=== PATIENT | male | born 1945 | race Caucasian/White ===

== ENCOUNTER 2020-12-20 09:48 | Observation (INO) | payer MEDICARE, OTHER, SELFPAY ==
[2020-12-20] VITALS (21 sets, daily range): BP systolic 125–170; BP diastolic 73–95; PULSE 59–65; RESP 14–27; TEMP 36.8–36.9; O2SAT 96–100; BMI 38.3
--- NOTE | 2020-12-20 11:19 | ED_ITS ---
HPI - Extremity Problem General Chief complaint: Extremity Problem,Nontraumatic Stated complaint: Weakness Time Seen by Provider: 12/20/20 11:19 Source: patient and EMS Mode of arrival: EMS Limitations: no limitations History of Present Illness HPI Narrative: This is a 75-year-old male comes emergency department with complaint of weakness of his left upper arm and lower extremity. Patient states this morning when he got out of bed he noticed that it was shaking. He states any time he would try to grab his cane and walk more when he was in the shower and felt like it was going to give out. Patient states he would get to a seated position. He states it seemed to be intermittent. It seems to be resolved. He describes it as his arm being more shaky and not that it was actually shaking or having tonic clonic type activity. Patient has not had similar symptoms in the past. He denies any pain. He denies any headache, no vision changes, no difficulties with speech. No chest pain, no shortness of breath, no nausea or vomiting. No urinary symptoms no issues with bowel movements. He has chronic tingling in both feet and numbness but no new sensation changes. He has not had any bowel or bladder incontinence. He does have a cardiac history, he has a pacemaker and a history remotely of surgery for kidney stones. He is on hydrochlorothiazide, atorvastatin, losartan, Flomax, carvedilol and Mexitil. No allergies. No tobacco, rare alcohol, no illicit. Dr. 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 Related Data Home Medications Medication Instructions Recorded Confirmed atorvastatin 40 mg tablet 40 mg PO QPM 12/20/20 12/20/20 carvedilol 6.25 mg tablet See Rx Instructions .ROUTE .COMPLEX 12/20/20 12/20/20 hydrochlorothiazide 50 mg PO QAM 12/20/20 12/20/20 mexiletine 200 mg capsule See Rx Instructions .ROUTE .COMPLEX 12/20/20 12/20/20 tamsulosin 0.4 mg capsule 0.4 mg PO BID 12/20/20 12/20/20 Allergies Allergy/AdvReac Type Severity Reaction Status Date / Time No Known Drug Allergies Allergy Verified 12/20/20 10:26 Review of Systems Review of Systems ROS Unobtainable: All systems reviewed & are unremarkable except as noted in HPI and below Patient History Social History household members: none Smoking Status: Former smoker alcohol intake: current Smoking Status: Current some day smoker tobacco type: smokeless tobacco alcohol intake frequency: 0-2 drinks per day Substance Use Type: does not use Exam Narrative Exam Narrative: GEN: well nourished, well appearing male, alert and oriented x 3, patient appears to be in mild distress. HEENT: Atraumatic, pupils are equal round reactive to light, extraocular movements are intact, nares are clear, TMs are clear with no fluid, there is no conjunctival pallor. Throat is clear without any exudates, erythema, tonsillar enlargement or uvular deviation, no facial droop. Normal speech. HEART: Regular rate and rhythm without murmur, clicks, rubs. Pulses are equal in upper and lower extremities LUNGS:Lungs clear to auscultation, no wheezes, rales, crackles, chest moves symmetrically ABD:bowel sounds normal, soft, non-tender, no guarding, rebound, rigidity, no masses noted, no hepatosplenomegaly :No CVA tenderness MSCL: Non-tender, no muscle atrophy, muscles strength 5/5 upper and lower extremities, full range of motion, normal gait NEURO:CN 2-12 intact, sensation normal, reflexes 2/4 upper and lower extre mities. finger nose finger test normal, heel pathak test normal, romberg normal SKIN: No rash, skin or erythema noted. Initial Vital Signs Initial Vital Signs: Vital Signs Temperature 98.4 F 12/20/20 09:50 Pulse Rate 62 12/20/20 09:50 Respiratory Rate 18 12/20/20 09:50 Blood Pressure 131/80 12/20/20 09:50 Pulse Oximetry 100 12/20/20 09:50 Scores NIH Stroke Scale Level of Conciousness: Alert, keenly responsive Ask month/age: Answers both questions correctly. Open/close eyes, close hand: Performs both tasks correctly Best gaze horizontal: Normal Visual hill: No visual loss Facial palsy: Normal symetrical movement Left arm drift: No drift for full 10 sec Right arm drift: No drift for full 10 sec Left leg drift: No drift for full 5 sec Right leg drift: No drift for full 5 sec Limb ataxia: Absent Sensory on face/arms/legs: Normal, no sensory loss Best language: No aphasia, normal Dysarthria: Normal Extinction or inattention: No abnormality Total NIH Stroke scale score: 0 Course Orders Ordered: ED Orders 12/20/20 11:55 CT head/brain wo con Stat 12/20/20 11:56 CT angio head and neck Stat 12/20/20 12:17 Basic Metabolic Panel Stat Complete Blood Count AUTO DIFF Stat Partial Thromboplastin Time Stat Prolactin Stat Prothrombin Time INR Stat 12/20/20 14:52 COVID19 - 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 Lynn, accepts for observation for possible stroke. Discussed somewhat atypical presentation. Patient did wake up with symptoms so is not a tPA candidate. Patient was able to ambulate in the room but does appreciate some weakness on that left side still when he went to CT scan. Vital Signs Vital signs: Vital Signs - 8 hr 12/20/20 12:57 12/20/20 12:59 12/20/20 13:00 Pulse Rate 59 L 59 L 59 L Respiratory Rate 20 23 25 H Blood Pressure 168/80 H Pulse Oximetry 96 96 96 12/20/20 13:01 12/20/20 13:26 12/20/20 13:30 Pulse Rate 59 L 60 60 Respiratory Rate 23 26 H 25 H Blood Pressure 125/73 145/84 H 144/83 H Pulse Oximetry 96 98 99 12/20/20 14:00 12/20/20 14:01 12/20/20 14:30 Pulse Rate 60 60 60 Respiratory Rate 17 27 H 19 Blood Pressure 151/81 H Pulse Oximetry 97 98 97 12/20/20 14:31 Pulse Rate 60 Respiratory Rate Blood Pressure 132/81 Pulse Oximetry 98 MDM - Extremity (Nontraumatic) Lab Data Result diagrams: 12/20/20 12:17 12/20/20 12:17 Labs: Lab Results 12/20/20 12/20/20 12/20/20 Range/Units 12:17 12:17 12:17 WBC 5.0 (4.5-11.0) X10^3/uL RBC 4.66 (4.5-5.9) X10^6/uL Hgb 14.8 (13.5-17.5) g/dL Hct 43.9 (41-53) % MCV 94.2 (80-100) fL MCH 31.8 (26-34) PG MCHC 33.7 (30-36) % RDW 13.0 (11.6-14.8) % Plt Count 149 L (150-400) X10^3/uL Neut % (Auto) 60.5 (50-75) % Lymph % (Auto) 24.0 L (25-40) % [place] % (Auto) 11.3 (3-14) % Eos % (Auto) 3.1 (2-4) % Baso % (Auto) 1.1 (0-2) % Neut # (Auto) 3000 (0035-8533) /uL Lymph # (Auto) 1200 (8879-1675) /uL [place] # (Auto) 600 (0-900) /uL Eos # (Auto) 200 (0-450) /uL Baso # (Auto) 100 (0-100) /uL PT 13.1 H (10.1-12.7) SECONDS INR 1.2 (0.9-1.3) APTT 33 (26.4-36.2) SECONDS Sodium 139 (137-145) mmol/L Potassium 4.1 (3.4-5.1) mmol/L Chloride 107 (98-107) mmol/L Carbon Dioxide 27 (22-32) mmol/L BUN 15 (9-20) mg/dL Creatinine 0.70 (0.66-1.25) mg/dL Estimated GFR > 60.0 (>60) mL/min BUN/Creatinine Ratio 21.4 (6-22) Glucose 101 (80-110) mg/dL Calcium 9.7 (8.4-10.2) mg/dL Prolactin 9.9 (3.7-17.9) ng/mL Urine Dip Bedside Urine Glucose Negative Bedside Urine Bilirubin - Negative Bedside Urine Ketone - Negative Urine Specific Agency 1.020 Bedside Urine Occult Blood - Negative Bedside Urine pH 6.0 Bedside Urine Protein - Negative Bedside Urine Urobilinogen - Negative Bedside Urine Nitrite - Negative Bedside Urine Leukocytes - Negative Esterase ECG Data Attestation EKG: I personally reviewed and interpreted this ECG as follows: Interpretation: Dual paced rhythm, rate of 50 9p are 118 QRS of 186 and QTC 496. Discharge Plan Departure Patient Disposition: Admitted as Observation Clinical Impression: Acute CVA (cerebrovascular accident) Admit Date/Time: 12/20/20 14:46 Admit Provider: Tee Lynn
--- NOTE | 2020-12-20 11:55 | DI.CT.S_ITS ---
PROCEDURE: CT HEAD/BRAIN WO CON INDICATIONS: weakness, shaking of left leg/arm, gone now. TECHNIQUE: Noncontrast 4.5 mm thick angled axial sections acquired from the foramen magnum to the vertex, with coronal and sagittal reformats. For radiation dose reduction, the following was used: automated exposure control, adjustment of mA and/or kV according to patient size. COMPARISON: None. FINDINGS: Image quality: Excellent. CSF spaces: Basal cisterns are patent. No extra-axial fluid collections. The ventricles are symmetric in size and shape. Brain: No intracranial bleeds or masses. There is cerebral volume loss for age, with resultant ventricular and sulcal prominence. There are periventricular and deep white matter chronic small vessel ischemic changes. There is intracranial internal carotid artery atherosclerosis. Skull and face: Calvarium and visualized facial bones appear intact, without suspicious lesions. Bilateral intraocular lens replacements noted. Sinuses: Visualized sinuses and mastoids are clear. IMPRESSION: Atrophy and chronic ischemic change without acute hemorrhage or mass effect Approved by: Christopher Aguirre M.D. on 12/20/2020 at 12:41
--- NOTE | 2020-12-20 11:56 | DI.CT.S_ITS ---
PROCEDURE: CT ANGIO HEAD AND NECK INDICATIONS: weakness, shaking of left leg/arm, gone now. TECHNIQUE: Noncontrast images were performed earlier in the day and not repeated. After the administration of intravenous contrast, 1 mm thick sections acquired from the aortic arch through the [place]. Post-contrast 4.5 mm thick sections then re-acquired from the foramen magnum to the vertex. 3-dimensional qidojqh-yfjwnlyux-anaedrdytw (MIP) and/or volume rendering reformats were acquired of the central intracranial vasculature and neck separately. COMPARISON: [facility], CT, CT HEAD/BRAIN WO CON, 12/20/2020, 13:12. FINDINGS: Image quality: There are collateral veins seen throughout the neck, which limit evaluation of the neck. BRAIN: CSF spaces: Ventricles are normal in size and shape. Basal cisterns are patent. No extra-axial fluid collections. Brain: No midline shift. No intracranial bleeds or masses. Bernstein-white matter interface appears intact. Skull and face: Calvarium and facial bones appear intact, without suspicious lesions. Orbits appear normal. Sinuses: Sinuses and mastoids are clear. HEAD CT ANGIOGRAPHY: Anterior circulation: Intracranial internal carotid arteries are normal in size and flow. The flow within the paired anterior cerebral arteries is normal and symmetric. The flow within the middle cerebral arteries is normal and symmetric. The anterior communicating artery is seen. No aneurysms are seen. Posterior circulation: Visualized portions of the vertebral arteries demonstrate normal caliber. The distal right vertebral artery largely terminates in the right posterior inferior cerebellar artery. The basilar artery is within normal limits. Flow within the posterior cerebral arteries is normal and symmetric. No aneurysms are seen. NECK CT ANGIOGRAPHY: Carotid system: The great vessels demonstrate a conventional anatomy as they arise from the aortic arch. The origins of the common carotid arteries appear patent. The common carotid arteries demonstrate normal caliber and courses. The bifurcation regions are both widely patent. The internal carotid arteries demonstrate normal calibers and courses. Posterior circulation: The origins of the vertebral arteries both appear widely patent. The more superior extracranial portions of both vertebral arteries also demonstrate normal courses and calibers. The left vertebral artery is dominant to the right. Soft tissues: Visualized neck soft tissues demonstrate no suspicious abnormalities. A left-sided pacer device is seen. Bones: No suspicious bony lesions. Visualized cervical spine appears normally aligned. Relatively prominent cervical spine degenerative changes are seen. IMPRESSION: No significant intracranial arterial abnormality is seen. Limited evaluation of the neck arteries, yet without a hemodynamically significant stenosis seen. Incidental note is made of: Pacer device Relatively prominent cervical spine degenerative change Any quantitative measurements of stenosis were performed using NASCET criteria. Dictated by: Mike Portillo M.D. on 12/20/2020 at 12:44 Approved by: Mike Portillo M.D. on 12/20/2020 at 12:47
[2020-12-20 12:28] LABS: Add Manual Diff / Slide Review NO; Basophils Absolute Auto 100 /uL (0-100); Basophils Percent Auto 1.1 % (0-2); Eosinophils Absolute Auto 200 /uL (0-450); Eosinophils Percent Auto 3.1 % (2-4); Hematocrit 43.9 % (41-53); Hemoglobin 14.8 g/dL (13.5-17.5); Lymphocytes Absolute Auto 1200 /uL (1100-4500); Mean Corpuscular HGB Conc 33.7 % (30-36); Mean Corpuscular Hemoglobin 31.8 PG (26-34); Mean Corpuscular Volume 94.2 fL (80-100); Monocytes Absolute Auto 600 /uL (0-900); Monocytes Percent Auto 11.3 % (3-14); Neutrophils Absolute Auto 3000 /uL (1500-7000); Neutrophils Percent Auto 60.5 % (50-75); Platelet Count 149 X10^3/uL (150-400); Red Blood Cell Count 4.66 X10^6/uL (4.5-5.9)
[2020-12-20 12:35] LABS: INR 1.2 (0.9-1.3); Prothrombin Time 13.1 SECONDS (10.1-12.7)
[2020-12-20 12:38] LABS: PTT Partial Thromboplastin Tim 33 SECONDS (26.4-36.2)
[2020-12-20 12:40] LABS: BUN Creatinine Ratio 21.4 (6-22); Blood Urea Nitrogen 15 mg/dL (9-20); Calcium 9.7 mg/dL (8.4-10.2); Carbon Dioxide 27 mmol/L (22-32); Chloride 107 mmol/L (98-107); Estimated Glomerular Filt Rate > 60.0 mL/min (>60); Glucose 101 mg/dL (80-110); HEMOLYSIS < 15 (0-50); Potassium 4.1 mmol/L (3.4-5.1); Sodium 139 mmol/L (137-145)
[2020-12-20 12:57] LABS: Prolactin 9.9 ng/mL (3.7-17.9)
[2020-12-20] MEDS: SODIUM CHLORIDE 0.9% 1,000 ML 150 ML IV (13:05)
[2020-12-20 15:45] LABS: COVID19 - ADMIT (NP swab/PCR) Negative (Negative)
--- NOTE | 2020-12-20 15:52 | PC.NURSE ---
Pt ambulates to toilet, upon return to room Pt summons RNs to room. States that Pt had lost control of his right leg while lying in bed. Atates This is more than just spasms. Pt states there is some kind of electrical current to my leg that is making it go haywire. RNs reassure Pt and , ask them to alert staff if it happens again.
[2020-12-20] MEDS: ASPIRIN 81 MG CHEW TAB 324 MG PO (15:59)
--- NOTE | 2020-12-20 17:43 | DI.ECHO.S_ITS ---
[facility]---------+ [facility] +---------+ : : [address] [place] : : : : [id number] : : : : Phone: [phone] Echocardiogram Report + + :Name: SHIVA GROSSMAN Study Date: 12/21/2020 Height: 74 in : :[facility] ReadingLocation: Weight: 307 lb : : Gender: Male BSA: 2.6 m2 : :: 1945 Age: 75 yrs BP: 155/95 mmHg: :Reason For Study: AEROLOGIST : :Ordering Physician: MILENA, : :JULISSA Performed By: Courtney Dimas : :Referring: JULISSA ABBOTT : + + Interpretation Summary The left ventricle is borderline dilated. Left ventricular systolic function is normal. The ejection fraction is estimated to be 60-65%. There are no obvious focal wall motion abnormalities noted but poor endocardial definition reduces the sensitivity for the detection of such. The right ventricle is borderline dilated. There is a pacemaker lead in the right ventricle. The right ventricular systolic function is normal. Pulmonary artery pressures cannot be estimated because of the lack of a measurable TR jet velocity but the IVC suggests a CVP of around 3 mmHg. The left atrium is mildly dilated. The right atrium is mildly dilated. There is severe aortic stenosis. The peak aortic velocity is 4.28 m/sec. The aortic valve mean gradient is 44 mmHg. The calculated aortic valve area is 0.95 cm2. There is mild aortic regurgitation. There is no other significant valvular heart disease. The ascending aorta is moderately enlarged. Procedure: A two-dimensional transthoracic echocardiogram with color flow and Doppler was performed. Comparison is made with the echocardiogram of 04/17/2011. The study quality was technically difficult. A contrast injection of Definity was performed to improve assessment of LV function. The patient has a paced rhythm. The heart rate ranged between 60-68 bpm during the study. Left Ventricle: The left ventricle is borderline dilated. There is mild- moderate concentric left ventricular hypertrophy. Left ventricular systolic function is normal. The ejection fraction is estimated to be 60-65%. There are no obvious focal wall motion abnormalities noted but poor endocardial definition reduces the sensitivity for the detection of such. Right Ventricle: The right ventricle is borderline dilated. There is a pacemaker lead in the right ventricle. The right ventricular systolic function is normal. Atria: The left atrium is mildly dilated. The right atrium is mildly dilated. The interatrial septum is not well visualized. Mitral Valve: The mitral valve leaflets appear mildly thickened, but open well. There is mild mitral annular calcification. There is no mitral regurgitation noted. Aortic Valve: The aortic valve is trileaflet. The aortic valve is severely calcified. There is severe aortic stenosis. The peak aortic velocity is 4.28 m/sec. The aortic valve mean gradient is 44 mmHg. The calculated aortic valve area is 0.95 cm2. There is mild aortic regurgitation. Tricuspid Valve: The tricuspid valve is normal in structure and function. No tricuspid regurgitation. Pulmonary artery pressures cannot be estimated because of the lack of a measurable TR jet velocity but the IVC suggests a CVP of around 3 mmHg. Pulmonic Valve: The pulmonic valve is not well visualized. There is trace pulmonic regurgitation. There is no other significant valvular heart disease. Great Vessels: The aortic root is normal size. The ascending aorta is moderately enlarged. The IVC is of normal diameter and collapses greater than 50% with a sniff. This suggests a low right atrial pressure of 3 mm Hg. Pericardium/ Pleura There is no pericardial effusion. There is no pleural effusion. MMode/2D Measurements & Calculations LVIDd: 6.0 cm LVOT diam: 2.3 cm LVIDs: 4.2 cm Ao root diam: 3.9 cm FS: 29.9 % asc Aorta Diam: 4.1 cm IVSd: 1.3 cm LVPWd: 1.5 cm LV quintero. diameter/BSA (cm/m^2): 2.3 LV sys. diameter/BSA (cm/m^2): 1.6 LA A2 area: 27.4 cm2 RA long axis: 5.3 cm LA A4 area: 27.7 cm2 RA area: 24.1 cm2 LA length (vol): 6.7 cm RA vol: 92.9 ml LA vol: 95.4 ml RA : 35.6 ml/m2 LA vol index: 36.6 ml/m2 IVC diam: 1.5 cm RVD1 (basal): 4.9 cm TAPSE: 2.6 cm Doppler Measurements & Calculations Ao V2 max: 428.5 cm/sec LVOT Max Angelo: 100.0 cm/sec Ao V2 mean: 308.6 cm/sec LV V1 max P.0 mmHg Ao max P.5 mmHg LV V1 VTI: 22.3 cm Ao mean P.8 mmHg DUTCH(I,D): 1.1 cm2 Ao V2 VTI: 89.0 cm DUTCH(V,D): 0.99 cm2 sev ratio: 0.25 DUTCH indexed to BSA (cm^2/m^2): 0.41 MV E max angelo: 94.3 cm/sec PA pr(Accel): 39.6 mmHg MV A max angelo: 102.4 cm/sec MV E/A: 0.92 Med Peak E' Angelo: 5.1 cm/sec E/E' med: 18.3 Lat Peak E' Angelo: 3.1 cm/sec E/E' lat: 30.2 E/e' average: 24.3 MV dec time: 0.35 sec SV(LVOT): 94.3 ml Reading Physician:01:16 PM
--- NOTE | 2020-12-20 18:19 | PC.NURSE ---
Pt up to unit from ED at 1709 in a wheelchair. SBA transfer to the bed. VSS and NIH was 1 (more numbness in left leg than right but per patient this is normal for him). Swallow screen passed. Discussed with hospitalist Dr. Lynn and he ordered a heart healthy diet instead of clear liquids and no fluids are needed.
--- NOTE | 2020-12-20 19:01 | PC.NURSE ---
Lab called about urine drug screen order from ER. Per Dr. Lynn, this does not need to be completed. Cancelled order and lab aware.
--- NOTE | 2020-12-20 20:41 | PM.HP.1 ---
History of Present Illness History of Present Illness Date Patient Seen: 12/20/20 Time Patient Seen: 15:00 Chief complaint: Weakness Narrative: Mr. Avery is a 75M with PMH HTN, HL, BPH, s/p PPM who comes in complaining of left sided weakness and inability to control his extremities. Patient has never had any symptoms like this previously. He woke up this morning and as he attempted to ambulate he noted his left arm and leg were difficult to control. He does not feel this was secondary to pain. He could still move his arm and leg. He had no numbness, no incontinence. He noted a positional and intermittent component to his symptoms. He did not have tremors or seizure like activity. He had no trauma. He had no vision changes, headache, or changes in his speech. In the ED workup was done, vitals were unremarkable. NIH 0. Labs notable for WBC 5.0, creatinine 0.70. Patient was not a tpa candidate as he woke up with symptoms and they had completely resolved. CT head was negative for stroke. CT angio head/neck did not show any evidence of vascular disease. he did have noted c5-c6 bilateral neural formanimal narrowing and moderate central canal narrowing. Patient does state he has some neck discomfort chronically. He was ordered for aspirin. He was admitted for further treatment. Family history father had [place], CAD Patient History Comment: history of kidney stones Family & Social History Social History: household members none Prior Living Arrangements House Safety & Behavioral: Feels Safe in Current Yes Environment Been Physically Hurt or No Threatened By a Person Suicidal Ideation Description None Suicide Plan Description No Plan Tobacco & Substance use: Smoking Status Former smoker alcohol intake current alcohol intake frequency holiday/special occasion Substance Use Type does not use Meds Home Medications and Allergies Home Medications Medication Instructions Recorded Confirmed Type atorvastatin 40 mg tablet 40 mg PO QPM 12/20/20 12/20/20 History carvedilol 6.25 mg tablet See Rx Instructions .ROUTE .COMPLEX 12/20/20 12/20/20 History hydrochlorothiazide 50 mg PO QAM 12/20/20 12/20/20 History mexiletine 200 mg capsule See Rx Instructions .ROUTE .COMPLEX 12/20/20 12/20/20 History tamsulosin 0.4 mg capsule 0.4 mg PO BID 12/20/20 12/20/20 History Allergies Allergy/AdvReac Type Severity Reaction Status Date / Time No Known Drug Allergies Allergy Verified 12/20/20 10:26 Review of Systems Review of Systems Narrative: 14 systems reviewed and negative aside from what is noted in HPI Exam Vital Signs (past 8 hours): - 12/20/20 12:57 12/20/20 12:59 12/20/20 13:00 Temperature Pulse Rate 59 L 59 L 59 L Respiratory Rate 20 23 25 H Blood Pressure 168/80 H Pulse Oximetry 96 96 96 12/20/20 13:01 12/20/20 13:26 12/20/20 13:30 Temperature Pulse Rate 59 L 60 60 Respiratory Rate 23 26 H 25 H Blood Pressure 125/73 145/84 H 144/83 H Pulse Oximetry 96 98 99 12/20/20 14:00 12/20/20 14:01 12/20/20 14:30 Temperature Pulse Rate 60 60 60 Respiratory Rate 17 27 H 19 Blood Pressure 151/81 H Pulse Oximetry 97 98 97 12/20/20 14:31 12/20/20 15:00 12/20/20 15:23 Temperature Pulse Rate 60 60 64 Respiratory Rate 23 22 Blood Pressure 132/81 148/81 H 170/75 H Pulse Oximetry 98 99 99 12/20/20 15:30 12/20/20 16:00 12/20/20 16:01 Temperature Pulse Rate 60 60 60 Respiratory Rate 24 14 26 H Blood Pressure 148/83 H Pulse Oximetry 99 98 97 12/20/20 16:30 12/20/20 16:31 12/20/20 17:10 Temperature 98.3 F Pulse Rate 60 60 61 Respiratory Rate 17 22 18 Blood Pressure 126/78 155/95 H Pulse Oximetry 97 97 98 Oxygen Delivery Method Room Air Narrative Exam Narrative: GEN: no acute distress HEENT: PERRL, moist mucous membranes NECK: trachea midline, no JVD CV: regular rate and rhythm with no murmurs PULM: clear bilaterally, no wheezes, rhonchi, rales ABD: soft, nontender, nondistended, no organomegaly, normal bowel sounds SKIN: no rashes noted EXT: warm and well perfused with no edema NEURO: awake alert and oriented, 5/5 strength in upper and lower extremities, CN 2-12 intact, no pronator drift, rapid alternating movements, heel to pathak all normal PSYCH: pleasant, cooperative Objective Labs Result Diagrams: 12/20/20 12:17 12/20/20 12:17 Labs: Laboratory Results - last 24 hr 12/20/20 12/20/20 12/20/20 12:17 12:17 12:17 WBC 5.0 RBC 4.66 Hgb 14.8 Hct 43.9 MCV 94.2 MCH 31.8 MCHC 33.7 RDW 13.0 Plt Count 149 L Neut % (Auto) 60.5 Lymph % (Auto) 24.0 L [place] % (Auto) 11.3 Eos % (Auto) 3.1 Baso % (Auto) 1.1 Neut # (Auto) 3000 Lymph # (Auto) 1200 [place] # (Auto) 600 Eos # (Auto) 200 Baso # (Auto) 100 PT 13.1 H INR 1.2 APTT 33 Sodium 139 Potassium 4.1 Chloride 107 Carbon Dioxide 27 BUN 15 Creatinine 0.70 Estimated GFR > 60.0 BUN/Creatinine Ratio 21.4 Glucose 101 Calcium 9.7 Prolactin 9.9 SARS-CoV-2 (PCR) 12/20/20 14:52 WBC RBC Hgb Hct MCV MCH MCHC RDW Plt Count Neut % (Auto) Lymph % (Auto) [place] % (Auto) Eos % (Auto) Baso % (Auto) Neut # (Auto) Lymph # (Auto) [place] # (Auto) Eos # (Auto) Baso # (Auto) PT INR APTT Sodium Potassium Chloride Carbon Dioxide BUN Creatinine Estimated GFR BUN/Creatinine Ratio Glucose Calcium Prolactin SARS-CoV-2 (PCR) Negative Assessment & Plan Assessment & Plan narrative: Mr. Avery is a 75M with PMH HTN who comes in with intermittent inability to move his left side normally. 1. Intermittent left sided weakness, acute -etiology is not clear -CT head CTA head/neck do not show evidence of stroke -patient with AICD/ppm can not undergo MRI -ordered for aspirin and statin -ordered for PT/OT, speech therapy -NIH assessment q4 -ct neck reveals moderate central canal stenosis, not clear to me that this is source of weakness, but will consult ortho for their opinion on symptoms and imaging 2. HTN -continue coreg 3. HL -chronic, continue atorvastatin 4. BPH, chronic -continue tamsulosin 5. Thrombocytopenia -mild -no need for transfusion, trend daily CODE: Full Proxy: Joy Gambino I have utilized all available immediate resources to obtain, update, or review the patient's current medications. Quality VTE Deep Vein Thrombosis/Pulmonary Embolism Present on Admission: No MIPS - Admit I confirm the patient?s Advance Care Plan is present, Code status is documented, Surrogate decision maker is in patient?s record [If Yes, STOP here]: Yes
[2020-12-20] MEDS: TAMSULOSIN 0.4 MG CAPSULE PO (21:46)
[2020-12-20] MEDS: ATORVASTATIN 20 MG TABLET 80 MG PO (21:46)
[2020-12-20] MEDS: carvediloL 3.125 MG TABLET 6.25 MG PO (21:46)
[2020-12-21 00:05] VITALS: BP 112/66; PULSE 63; RESP 16; TEMP 37.1; O2SAT 95
[2020-12-21 06:00] LABS: Add Manual Diff / Slide Review NO; Basophils Absolute Auto 0 /uL (0-100); Basophils Percent Auto 0.5 % (0-2); Eosinophils Absolute Auto 200 /uL (0-450); Eosinophils Percent Auto 3.5 % (2-4); Hematocrit 41.4 % (41-53); Hemoglobin 13.9 g/dL (13.5-17.5); Lymphocytes Absolute Auto 1400 /uL (1100-4500); Lymphocytes Percent Auto 25.8 % (25-40); Mean Corpuscular HGB Conc 33.5 % (30-36); Mean Corpuscular Hemoglobin 31.3 PG (26-34); Mean Corpuscular Volume 93.4 fL (80-100); Monocytes Absolute Auto 700 /uL (0-900); Neutrophils Absolute Auto 3200 /uL (1500-7000); Neutrophils Percent Auto 58.2 % (50-75); Platelet Count 131 X10^3/uL (150-400); Red Blood Cell Count 4.44 X10^6/uL (4.5-5.9); White Blood Cell Count 5.4 X10^3/uL (4.5-11.0)
[2020-12-21 06:07] LABS: Hemoglobin A1C% w Est Avg Glu 5.3 % (4.0-6.0)
[2020-12-21 06:09] LABS: Cholesterol 130 mg/dL (140-199); HDL Cholesterol 30 mg/dL (40-60); LDL Cholesterol Calculated 53 mg/dL (<100); Triglycerides 236 mg/dL (35-150)
[2020-12-21 06:10] LABS: BUN Creatinine Ratio 21.8 (6-22); Blood Urea Nitrogen 17 mg/dL (9-20); Calcium 9.5 mg/dL (8.4-10.2); Carbon Dioxide 27 mmol/L (22-32); Chloride 106 mmol/L (98-107); Estimated Glomerular Filt Rate > 60.0 mL/min (>60); Glucose 96 mg/dL (80-110); HEMOLYSIS < 15 (0-50); Sodium 138 mmol/L (137-145)
[2020-12-21] MEDS: ENOXAPARIN 40 MG/0.4 ML SYRINGE SUBCUT (08:30)
[2020-12-21] MEDS: carvediloL 3.125 MG TABLET 6.25 MG PO (08:30)
[2020-12-21] MEDS: hydroCHLOROthiazide 25 MG TABLET 50 MG PO (08:30)
[2020-12-21] MEDS: ASPIRIN EC 81 MG TABLET PO (08:30)
[2020-12-21] MEDS: TAMSULOSIN 0.4 MG CAPSULE PO (08:31)
[2020-12-21 09:25] VITALS: BP 117/78; PULSE 57; RESP 16; TEMP 36.6; O2SAT 97
--- NOTE | 2020-12-21 10:59 | PT.IIE ---
Physical Therapy Inpatient Evaluation/Re-Eval M1 PT/OT-IP Prior Functional Status Start: 12/21/20 12:42 Freq: NEEDED Status: Active Protocol: Document 12/21/20 10:59 AB (Rec: 12/21/20 12:56 AB [id number]) Medical Review Prior Functional Status Medical History Reviewed Yes Communication able to make needs known Mobility and Gait pt stated that he is independent with all mobilities and ambulation without AD Social History Household Members none Living Arrangements House Number of Floors (Floors) Two Floors Number of Stairs To Enter/Railing? ramp to enter 14 steps R rail descending to TV room area Home Environment Standard Height Toilet,Walk in Shower,Built-In Shower Seat, Ramp Home Equipment Straight Cane,Hand Held Shower ,Grab Bars Near Toilet,Grab Bars In Shower Additional Social History Comment pt has an adjustable bed M2 PT-IP Current Condition Start: 12/21/20 12:42 Freq: NEEDED Status: Active Protocol: Document 12/21/20 10:59 AB (Rec: 12/21/20 12:56 AB [id number]) Physical Therapy Current Condition Current Condition Evaluation Date 12/21/20 Treatment Diagnosis r/o CVA; difficulty in walking Onset Date 12/20/20 M3 PT-IP Subjective Start: 12/21/20 12:42 Freq: NEEDED Status: Active Protocol: Document 12/21/20 10:59 AB (Rec: 12/21/20 12:56 AB [email or web address]) Subjective Physical Therapy Visit Type Type Initial Evaluation Visit Start Time 10:59 Visit Stop Time 11:30 Total Visit Minutes 31 Number of 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 Visits 0 Physical Therapy Visit Comments Patient Comments agreeable to do PT Therapy Pain Assessment Pain When Pain Assessed At Rest Location Head Scale Used c/o headache M4 PT-IP Mobility and Gait Start: 12/21/20 12:42 Freq: NEEDED Status: Active Protocol: Document 12/21/20 10:59 AB (Rec: 12/21/20 12:56 AB [id number]) PT-Bed Mobility Assessment Supine to Sit Supine to Sit Independent Sit to Supine Sit to Supine Independent PT-Transfer Assessment Sit to and From Stand Sit to and from Stand Independent,Use of Upper Extremities Equipment Transfer Assistive Device Gait Belt,Front Wheeled Walker Orthotic/Prosthetic Devices or Brace: No Comments Mobility Comments pt supine in bed and agreeable to to PT. completed bed mobility mod I. pt able to sit on EOB SBA. pt stated that he prefers to use FWW for safety for now and will be able to borrow one. pt ambulated using FWW mod I ~ 150 ft. completed up/down platform step using fWW mod I. pt ambulated back to his room. assessed ambulation without AD and completed SBA ~ 50 ft. presents with antalgic gait and pt stated that he has L hip issues. pt laid back in bed. Mod I with sit to supine. call light and table placed within reach. informed pt that no further PT needed at this time and pt agreed. informed nurse. Gait Assessment Gait Gait Assistance Required: Independent,Standby Assistance Distance (Feet) 150 Able to Maintain Weight Bearing Status Yes During Gait Assistive Devices Assistive Device None,Gait Belt,Front Wheeled Walker Orthotic/Prosthetic Devices or Brace: No Gait Deviations General Gait Pattern Antalgic,Decreased Stride Length,Decreased Feet Clearance Stair Climbing Assessment Evaluation Level of Assist On Stairs Independent Devices Stair Climbing Assistive Devices Front Wheel Walker Technique/Endurance Stair Climbing Direction Ascend and Descend Stair Climbing Technique Step to Step Number of Steps Climbed 1 Query Text: Stair Climbing Set # Repetitions (reps) 2 PT-Balance Assessment Sitting Balance and Reactions Static Sitting Balance Ability Normal Dynamic Sitting Balance Ability Normal Standing Balance and Reactions Static Standing Balance Ability Good Dynamic Standing Balance Ability Good Device Used without AD M5 PT-IP Objective Assessments Start: 12/21/20 12:42 Freq: NEEDED Status: Active Protocol: Document 12/21/20 10:59 AB (Rec: 12/21/20 12:56 AB [id number]) Orientation Orientation/Cognition Level of Alertness Alert Language Function Ability No Deficits Noted Safety Awareness Understands Safety Issues Memory Description No Deficits Noted Gross Range of Motion Lower Extremity ROM Assessment Within Functional Limits Strength Lower Extremity Strength Assessment Within Functional Limits Sensation Assessment Sensation Gross Sensation WNL Muscle Tone Muscle Tone WNL Yes Other Assessments Other Other Assessments pt presents with forward head and increase B shoulder protraction. increase upper/ mid traps tightness. educated pt on proper posture and alignment. M6 PT-IP Treatment Start: 12/21/20 12:42 Freq: NEEDED Status: Active Protocol: Document 12/21/20 10:59 AB (Rec: 08/04/21 12:56 AB [email or web address]) Physical Therapy Treatment Education Education Provided Safety M7 PT-IP Assessment and Plan Start: 12/21/20 12:42 Freq: NEEDED Status: Active Protocol: Document 12/21/20 10:59 AB (Rec: 12/21/20 12:56 [email or web address] PT Summary Assessment and Plan Potential Rehabilitation Potential Good Status of Condition at Evaluation Stable Summary Assessment Summary PT eval completed and no further PT intervention indicated at this time. pt is mod I with bed mobility, ambulation using FWW, SBA without AD for safety, mod I with up/down steps using FWW. Frequency of Treatment Frequency Of Treatment Discharge Recommendations To Nursing Amount of Assist Needed Independent Discharge Recommendations PT Discharge Recommendations Home Transportation Needs at Discharge Private Vehicle
--- NOTE | 2020-12-21 11:23 | ST.IPSCREEN ---
Order received, chart records reviewed. pt passed swallow screen last evening. Stopped in to screen pt's speech/swallow. Pt reports no difficulty with speech clarity and language skills. He stated his swallowing is normal. Discussed same with MD, who agreed. Will d/c order. No ST indicated.
--- NOTE | 2020-12-21 11:59 | OT.IPNOTE ---
Per Hospitalist states pt doing well and does not have any OT needs and okay to discharge OT eval orders.
--- NOTE | 2020-12-21 12:42 | P.HP_ITS ---
History of Present Illness History of Present Illness Date Patient Seen: 12/21/20 Time Patient Seen: 12:42 Chief complaint: Spasticity in the left upper and lower extremity Narrative: Is a 75-year-old gentleman who said that he developed spasticity in his left upper and lower extremity. He describes atypical motion both in the left arm and the left leg. He said he had a couple of episodes. He denies a loss of consciousness. He did not have difficulty speaking and did not have significantly altered mental status. He said that he felt that it was coming on and then he developed spasticity in both his arm and his leg. Patient History Family & Social History Social History: household members none Prior Living Arrangements House Safety & Behavioral: Feels Safe in Current Yes Environment Been Physically Hurt or No Threatened By a Person Suicidal Ideation Description None Suicide Plan Description No Plan Tobacco & Substance use: Smoking Status Former smoker alcohol intake current alcohol intake frequency holiday/special occasion Substance Use Type does not use Meds Home Medications and Allergies Home Medications Medication Instructions Recorded Confirmed Type atorvastatin 40 mg tablet 40 mg PO QPM 12/20/20 12/20/20 History carvedilol 6.25 mg tablet See Rx Instructions .ROUTE .COMPLEX 12/20/20 12/20/20 History hydrochlorothiazide 50 mg PO QAM 12/20/20 12/20/20 History mexiletine 200 mg capsule See Rx Instructions .ROUTE .COMPLEX 12/20/20 12/20/20 History tamsulosin 0.4 mg capsule 0.4 mg PO BID 12/20/20 12/20/20 History aspirin 162 mg PO DAILY 12/21/20 12/21/20 History Allergies Allergy/AdvReac Type Severity Reaction Status Date / Time No Known Drug Allergies Allergy Verified 12/20/20 10:26 Review of Systems Review of Systems Narrative: Does note some chronic low back pain. Has a history of multiple orth opedic problems. Has exposure to [place] in the remote past and some bilateral lower extremity numbness but new no new toxic exposures. Denies any recent viral issues. He has been vaccinated for COVID about 6-8 weeks ago. He did not have an abnormal reaction Exam Vital Signs (past 8 hours): - 12/21/20 09:25 Temperature 97.8 F Pulse Rate 57 L Respiratory Rate 16 Blood Pressure 117/78 Pulse Oximetry 97 Oxygen Delivery Method Room Air Oxygen Flow Rate 0 Narrative Exam Narrative: Alert and oriented, in his face is symmetrical, he has fair range of motion into his cervical spine without increased symptoms. 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 in bilateral upper extremities, reflexes are symmetrical to her slightly hyporeflexic the biceps triceps quads Achilles and suprapatellar reflex, there is no beats of clonus, normal strength in bilateral lower extremities there is some mild numbness Objective Labs Result Diagrams: 12/21/20 05:45 12/21/20 05:45 Labs: Laboratory Results - last 24 hr 12/20/20 12/20/20 12/21/20 12:17 14:52 05:45 WBC RBC Hgb Hct MCV MCH MCHC RDW Plt Count Neut % (Auto) Lymph % (Auto) [place] % (Auto) Eos % (Auto) Baso % (Auto) Neut # (Auto) Lymph # (Auto) [place] # (Auto) Eos # (Auto) Baso # (Auto) Sodium 139 Potassium 4.1 Chloride 107 Carbon Dioxide 27 BUN 15 Creatinine 0.70 Estimated GFR > 60.0 BUN/Creatinine Ratio 21.4 Glucose 101 Hemoglobin A1c Calcium 9.7 Triglycerides 236 H Cholesterol 130 L LDL Cholesterol, Calc 53 HDL Cholesterol 30 L Prolactin 9.9 SARS-CoV-2 (PCR) Negative 12/21/20 12/21/20 12/21/20 05:45 05:45 05:45 WBC 5.4 RBC 4.44 L Hgb 13.9 Hct 41.4 MCV 93.4 MCH 31.3 MCHC 33.5 RDW 13.0 Plt Count 131 L Neut % (Auto) 58.2 Lymph % (Auto) 25.8 [place] % (Auto) 12.0 Eos % (Auto) 3.5 Baso % (Auto) 0.5 Neut # (Auto) 3200 Lymph # (Auto) 1400 [place] # (Auto) 700 Eos # (Auto) 200 Baso # (Auto) 0 Sodium 138 Potassium 4.0 Chloride 106 Carbon Dioxide 27 BUN 17 Creatinine 0.78 Estimated GFR > 60.0 BUN/Creatinine Ratio 21.8 Glucose 96 Hemoglobin A1c 5.3 Calcium 9.5 Triglycerides Cholesterol LDL Cholesterol, Calc HDL Cholesterol Prolactin SARS-CoV-2 (PCR) CT scan of his neck which is a CT angiogram does not show severe cervical stenosis Assessment & Plan Assessment & Plan narrative: Atypical spasticity in the left upper extremity and left lower extremity. His symptoms do not sound consistent with cervical stenosis. I discussed with him and his friend that I think the most appropriate follow-up is to follow-up with neurology. He has a history of multiple orthopedic problems but does not really need orthopedic follow-up at this point. He is currently working on a weight loss program because of worsening left hip pain. Quality VTE Deep Vein Thrombosis/Pulmonary Embolism Present on Admission: No
[2020-12-21 13:00] VITALS: BP 137/87; PULSE 61; RESP 17; TEMP 36.5; O2SAT 97
--- NOTE | 2020-12-21 14:31 | CM.DANOTE ---
DCP/Assessment: Reviewed chart. Patient is a 75yr old male admitted to [facility] with weakness. PCP is Dr. Soni. Primary payor is 1)Medicare 2)[facility] betty Alvarez. Met with patient this afternoon explained CM/SW role. Patient resting in bed, alert and oriented at time of visit. Patient reports that he plans to d/c home today. At this time there are no identified d/c planning needs. P: Home today. Patient has supportive family. SEVEN Alejandro Discharge Planning/Care Management CM Discharge Assessment Start: 12/21/20 14:28 Freq: Status: Active Protocol: Document 12/21/20 14:29 KJS (Rec: 12/21/20 14:31 KJS [id number]) Discharge Planning Assessment Assigned Acid Blower SEVEN Alejandro Contact Information Gene (sister) # [phone] Advance Directives? No History Provided By Patient,Family Member,Medical Record Prior Living Arrangements House Household Members none Type of transporation used prior to Drives own vehicle admit Independent with ADL's Yes Is patient alert and oriented? Yes Caregiver for Another No DME Already Rented / Owned Cane Whiteboard Updated in Patient Room with Yes name and ext. # of Acid Blower Review Status In Process Next Review Type Continued Stay Review
[2020-12-21 15:45] VITALS: BP 123/85; PULSE 61; RESP 17; TEMP 37.2; O2SAT 96
--- NOTE | 2020-12-22 10:41 | P.DS_ITS ---
History of Present Illness History of Present Illness Chief complaint: Spasticity in the left upper and lower extremity Narrative: Mr. Avery is a 75M with PMH HTN, HL, BPH, s/p PPM who comes in complaining of left sided weakness and inability to control his extremities. Patient has never had any symptoms like this previously. He woke up this morning and as he attempted to ambulate he noted his left arm and leg were difficult to control. He does not feel this was secondary to pain. He could still move his arm and leg. He had no numbness, no incontinence. He noted a positional and intermittent component to his symptoms. He did not have tremors or seizure like activity. He had no trauma. He had no vision changes, headache, or changes in his speech. In the ED workup was done, vitals were unremarkable. NIH 0. Labs notable for WBC 5.0, creatinine 0.70. Patient was not a tpa candidate as he woke up with sy mptoms and they had completely resolved. CT head was negative for stroke. CT angio head/neck did not show any evidence of vascular disease. he did have noted c5-c6 bilateral neural formanimal narrowing and moderate central canal narrowing. Patient does state he has some neck discomfort chronically. He was ordered for aspirin. He was admitted for further treatment. Family history father had [place], CAD Discharge Providers Provider Date of admission: 12/20/20 14:46 Discharge Date: 12/21/20 Primary care physician: Reza Soni MD Consults: 12/20/20 17:41 Consult to Discharge Planning Routine Comment: Consult to Occupational Therapy Evaluate & Treat Comment: Physician Instructions: Evaluate and treat Consult to Physical Therapy Evaluate & Treat Comment: Physician Instructions: Evaluate and Treat Consult to Speech Therapy Evaluate & Treat Comment: Physician Instructions: Evaluate and treat Discharge provider: Tee Lynn MD Summary Hospital Course Discharge Diagnosis: 1. Intermittent left sided spasticity, weakness 2. Hypertension 3. Hyperlipidemia 4. BPH chronic 5. Thrombocytopenia 6. Severe aortic stenosis 7. s/p AICD Hospital Course: Mr. Avery is a 75M with PMH HTN who comes in with intermittent inability to move his left side normally. He described this as intermittent, positional, and described this as a lack of control of his left arm and leg with some associated weakness and some developed a spasticity in both extremities. He had no seizure like activity. He had no pain. He had no numbness. He was a rule out stroke, and his head CT and CTA head/neck did not show any acute process. Once he was admitted his symptoms resolved and he felt back to normal. He did have on his CT neck moderate central canal stenosis that was unlikely related to these symptoms. Orthopedics was consulted and confirmed he did not need o rthopedic follow. He had an AICD and could not get an MRI. He was already on aspirin and atorvastatin and encouraged to keep taking these. He was discharged with neurology referral. ECHO was done as part of stroke workup and showed severe aortic stenosis which he is already following with cardiology. Exam Vital Signs (past 8 hours): Oxygen Delivery Method Room Air Oxygen Flow Rate 0 Narrative Exam Narrative: GEN: no acute distress HEENT: PERRL, moist mucous membranes NECK: trachea midline, no JVD CV: regular rate and rhythm with 2/6 murmur PULM: clear bilaterally, no wheezes, rhonchi, rales ABD: soft, nontender, nondistended, no organomegaly, normal bowel sounds SKIN: no rashes noted EXT: warm and well perfused with no edema NEURO: awake alert and oriented, 5/5 strength in upper and lower extremities, CN 2-12 intact, no pronator drift, rapid alternating movements, heel to pathak all normal PSYCH: pleasant, cooperative Objective Labs Result Diagrams: 12/21/20 05:45 12/21/20 05:45 [facility] Social History household members: none Smoking Status: Former smoker alcohol intake: current Discharge Plan Discharge Plan Patient Disposition: Home Health Service Provider Discharge Comment: Mr. Avery came in with left sided lack of control of his left side. Initially thought possibly weakness, but he had good strength. His symptoms resolved in the hospital. He had no evidence of stroke, but could not get MRI as he had ICD. He did have some pinched nerves in his neck which may contribute. He will be referred to a neurologist for further evaluation. Discharge orders & Medications Prescriptions: Continued atorvastatin 40 mg tablet 40 mg PO QPM RF: 0 carvedilol 6.25 mg tablet See Rx Instructions .ROUTE .COMPLEX RF: 0 tamsulosin 0.4 mg capsule 0.4 mg PO BID RF: 0 mexiletine 200 mg capsule See Rx Instructions .ROUTE .COMPLEX RF: 0 hydrochlorothiazide 50 mg tablet 50 mg PO QAM RF: 0 aspirin 162 mg PO DAILY RF: 0 Medication counseling provided by Pharmacist: Yes Follow up/Referrals: Reza Soni MD [Primary Care Provider] - Kaya Stokes MD [Non-Staff] - (intermittent left arm weakness, spasm) Diet/Activity/Treatments Diet: Regular Discharge Data Primary Care Provider: Reza Soni Attending Provider: Tee Lynn VTE Deep Vein Thrombosis/Pulmonary Embolism Present on Admission: No
== END 2020-12-21 18:45 | disposition home health service (06) ==
LOC: ED 14:45 → AC 14:47
PROVIDERS: Admitting Provider Internal Medicine; Emergency Provider Emergency Medicine; PCP Family Medicine; Referring Provider Emergency Medicine; Visit Provider Internal Medicine
DX: R53.1 Weakness (principal); G89.29 Other chronic pain; R20.2 Paresthesia of skin; R25.2 Cramp and spasm; M54.5 Low back pain; R29.700 NIHSS score 0; Z95.0 Presence of cardiac pacemaker; I10 Essential (primary) hypertension; E78.5 Hyperlipidemia, unspecified; N40.0 Benign prostatic hyperplasia without lower urinary tract symptoms; Z20.822 Contact with and (suspected) exposure to COVID-19
CPT/HCPCS: 36415; 70450; 70496; 70498; 80048; 80061; 81003; 83036; 84146; 85025; 85610; 85730; 87635; 93005; 93306; 96360; 96361; 96372; 97161; 99284; C9803; G0378; J1650

== ENCOUNTER 2023-05-30 12:30 | Outpatient (RCR) | payer MEDICARE, OTHER, SELFPAY ==
[2020-12-20 17:10] VITALS: BMI 38.3
== END 2023-05-30 14:30 ==
LOC: CAR 12:30
PROVIDERS: PCP Family Medicine; Referring Provider Internal Medicine Cardiovascular Disease; Visit Provider Internal Medicine Cardiovascular Disease
DX: Z95.2 Presence of prosthetic heart valve (principal)
CPT/HCPCS: 93798

== ENCOUNTER 2023-11-14 09:50 | Inpatient (IN) | payer MEDICARE, OTHER, SELFPAY ==
[2020-12-20 17:10] VITALS: BMI 38.3
[2023-11-14] VITALS (45 sets, daily range): BP systolic 109–177; BP diastolic 70–93; PULSE 56–73; RESP 17–38; TEMP 36.6–37.5; O2SAT 92–99; BMI 41.0; BMI 38.9
--- NOTE | 2023-11-14 09:51 | DI.CT.S_ITS ---
PROCEDURE: CT HEAD/BRAIN WO CON INDICATIONS: Fall on thinners TECHNIQUE: Noncontrast 4.5 mm thick angled axial sections acquired from the foramen magnum to the vertex, with coronal and sagittal reformats. For radiation dose reduction, the following was used: automated exposure control, adjustment of mA and/or kV according to patient size. COMPARISON: [facility], CT, CT HEAD/BRAIN WO CON, 12/20/2020, 13:12. FINDINGS: Image quality: Diagnostic. CSF spaces: Basal cisterns are patent. No extra-axial fluid collections. The ventricles are symmetric in size and shape. Brain: No intracranial bleeds or masses. 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 There is cerebral volume loss for age, with resultant ventricular and sulcal prominence. There are periventricular and deep white matter chronic small vessel ischemic changes. There is intracranial internal carotid artery atherosclerosis. Skull and face: Calvarium and visualized facial bones appear intact, without suspicious lesions. Left periorbital facial soft tissue hematoma. Sinuses: Visualized sinuses and mastoids are clear. IMPRESSION: No acute intracranial pathology. Dictated by: Kylie Cotton MD, PhD on 11/14/2023 at 11:01 Approved by: Kylie Cotton MD, PhD on 11/14/2023 at 11:03
--- NOTE | 2023-11-14 09:51 | DI.CT.S_ITS ---
PROCEDURE: CT CERVICAL SPINE WO CON INDICATIONS: Fall on thinners TECHNIQUE: Noncontrast 3 mm thick sections acquired from the skull base to the T4 level. Sagittal and coronal reformats were then constructed. For radiation dose reduction, the following was used: automated exposure control, adjustment of mA and/or kV according to patient size. COMPARISON: None. FINDINGS: Image quality: Image quality degraded by patient motion artifact. Bones: No fractures or dislocations. Visualized superior ribs are intact. Spine degenerative disc disease and facet arthropathy. Soft tissues: Prevertebral soft tissues are normal in thickness. No paravertebral hematomas. No apical pneumothoraces. IMPRESSION: No fracture or acute osseous lesion within limitations related to motion artifact. If symptoms and/or clinical suspicion for pathology persists, evaluation with MRI should be considered for further assessment. Dictated by: Kylie Cotton MD, PhD on 11/14/2023 at 11:06 Approved by: Kylie Cotton MD, PhD on 11/14/2023 at 11:08
--- NOTE | 2023-11-14 09:57 | ED.GENADULT ---
HPI - General Adult General Chief complaint: Trauma Stated complaint: Fall, on thinners, found down Time Seen by Provider: 11/14/23 09:50 Source: patient and EMS Mode of arrival: EMS Limitations: no limitations History of Present Illness HPI narrative: Patient is a 78-year-old male who is here for evaluation of a fall. Patient stated that he fell last evening. Somewhat confused about the events that led up to the fall. He was on anticoagulation. He laid on the ground for several hours. Patient arrived today by EMS. He was bruising around his left eye. Complaining of lower back pain. He states that ?everything hurts? denies chest pain, shortness of breath. He arrived not on a backboard not in a cervical collar. Related Data Home Medications Medication Instructions Recorded Confirmed atorvastatin 40 mg tablet 40 mg PO QPM 12/20/20 11/14/23 carvedilol 6.25 mg tablet See Rx Instructions .Route .COMPLEX 12/20/20 11/14/23 hydrochlorothiazide 50 mg PO QAM 12/20/20 11/14/23 mexiletine 200 mg capsule See Rx Instructions .Route .COMPLEX 12/20/20 11/14/23 tamsulosin 0.4 mg capsule 0.4 mg PO BID 12/20/20 11/14/23 aspirin 162 mg PO DAILY 12/21/20 11/14/23 Allergies Allergy/AdvReac Type Severity Reaction Status Date / Time No Known Drug Allergies Allergy Verified 12/20/20 10:26 Review of Systems Review of Systems ROS Unobtainable: All systems reviewed & are unremarkable except as noted in HPI and below Patient History Social History household members: none Smoking Status: Former smoker alcohol intake: current Smoking Status: Former smoker tobacco type: smokeless tobacco alcohol intake frequency: holidays/special occasions only Substance Use Type: does not use Exam Initial Vital Signs Initial Vital Signs: Vital Signs Temperature 99.4 F 11/14/23 09:54 Pulse Rate 73 11/14/23 09:54 Respiratory Rate 25 H 11/14/23 09:54 Pulse Oximetry 96 11/14/23 09:54 Oxygen Delivery Method Room Air 11/14/23 09:54 Const General: cooperative and comfortable HENMT Head: normal to inspection and normocephalic Eyes Other: Bruising around the left eye Chest Chest: No crepitus and No tenderness Resp Effort & Inspection: normal respiratory effort Auscultation: clear to auscultation bilaterally Cardio Rate: regular rate Rhythm: regular rhythm GI Inspection: normal to inspection and non-distended Palpation: soft Skin Other: Bruising around the left eye, bruising on the left-sided chest wall Neuro General: patient alert, patient awake and moves all extremities Extrem Other: Pelvis is stable. Moves all 4 extremities. No gross deformities. Partial avulsion of the nail of the left great toe Course Orders Ordered: ED Orders 11/14/23 09:51 CT cervical spine wo con Stat CT head/brain wo con Stat 11/14/23 09:52 EKG-12 Lead Stat 11/14/23 09:55 Complete Blood Count AUTO DIFF Stat Comprehensive Metabolic Panel Stat Lipase Stat PTT Partial Thromboplastin James Stat Prothrombin Time INR Stat Troponin & CK Cardiac Panel Stat 11/14/23 09:56 CT chest abd pel w con Stat CT facial bones wo con Stat Acetaminophen (Acetaminophen 325 Mg Tablet) 650 mg PO Q6H PRN PRN Reason: Fever/Mild Pain (1-3) Hydrocodone Bitart/Acetaminophen (Hydrocodone/Acet 5/325 Tablet) 1 tab PO Q4H PRN PRN Reason: Pain, Moderate (4-6) Aspirin (Aspirin Ec 81 Mg Tablet) 162 mg PO DAILY [facility] Carvedilol (Carvedilol 12.5 Mg Tablet) 12.5 mg PO DAILY [facility] Carvedilol (Carvedilol 3.125 Mg Tablet) 6.25 mg PO BEDTIME [facility] Heparin Sodium (Porcine) (Heparin 5,000 Unit/Ml Vial) 5,000 unit SUBCUT BID [facility] Last Admin: 11/14/23 13:54 Dose: 5,000 unit Documented By: KDK Sodium Chloride (Normal Saline 0.45%) 1,000 mls @ 100 mls/hr IV CONT [facility] Last Admin: 11/14/23 13:54 Dose: 100 mls/hr Documented By: KDK Naloxone HCl (Naloxone 0.4 Mg/Ml Vial) 0.2 mg IV Q2MIN PRN PRN Reason: Opiate Reversal Mexiletine 200 Mg (Capsule) 400 mg PO DAILY [facility] Mexiletine 200 Mg (Capsule) 200 mg PO BEDTIME [facility] Ondansetron HCl (Ondansetron 4 Mg/2 Ml Inj) 4 mg IV Q8HR PRN PRN Reason: Nausea And Vomiting Tamsulosin HCl (Tamsulosin 0.4 Mg Capsule) 0.4 mg PO BID [facility] Discontinued Medications Atorvastatin Calcium (Atorvastatin 20 Mg Tablet) 40 mg PO QPM [facility] Sodium Chloride (Normal Saline 0.9%) 1,000 mls @ 150 mls/hr IV CONT [facility] Last Admin: 11/14/23 10:58 Dose: 150 mls/hr Documented By: RB Vital Signs Vital signs: Vital Signs - 8 hr 11/14/23 10:10 11/14/23 10:15 11/14/23 10:16 Pulse Rate 71 71 71 Respiratory Rate 28 H 20 26 H Blood Pressure Pulse Oximetry 97 92 Oxygen Delivery Method 11/14/23 10:16 11/14/23 10:20 11/14/23 10:20 Pulse Rate 71 Respiratory Rate 28 H Blood Pressure 109/84 123/79 Pulse Oximetry 98 Oxygen Delivery Method 11/14/23 10:25 11/14/23 10:25 11/14/23 10:44 Pulse Rate 71 56 L Respiratory Rate Blood Pressure 136/74 Pulse Oximetry 98 99 Oxygen Delivery Method 11/14/23 10:45 11/14/23 10:45 11/14/23 10:50 Pulse Rate 69 Respiratory Rate 19 22 Blood Pressure 135/74 Pulse Oximetry 97 97 Oxygen Delivery Method Room Air 11/14/23 10:50 11/14/23 10:55 11/14/23 10:55 Pulse Rate 71 Respiratory Rate 34 H Blood Pressure 130/81 143/83 H Pulse Oximetry 97 Oxygen Delivery Method Room Air 11/14/23 11:00 11/14/23 11:00 11/14/23 11:05 Pulse Rate 70 69 Respiratory Rate 22 24 Blood Pressure 154/92 H Pulse Oximetry 98 96 Oxygen Delivery Method 11/14/23 11:05 11/14/23 11:10 11/14/23 11:10 Pulse Rate 70 Respiratory Rate 22 Blood Pressure 153/93 H 142/92 H Pulse Oximetry 97 Oxygen Delivery Method 11/14/23 11:15 11/14/23 11:15 11/14/23 11:20 Pulse Rate 70 69 Respiratory Rate 22 22 Blood Pressure 164/80 H Pulse Oximetry 97 95 Oxygen Delivery Method 11/14/23 11:20 11/14/23 11:25 11/14/23 11:25 Pulse Rate 69 Respiratory Rate 22 Blood Pressure 175/82 H 153/74 H Pulse Oximetry 97 Oxygen Delivery Method 11/14/23 11:30 11/14/23 11:30 11/14/23 11:35 Pulse Rate 70 69 Respiratory Rate 38 H 24 Blood Pressure 153/90 H Pulse Oximetry 97 98 Oxygen Delivery Method 11/14/23 11:35 11/14/23 11:40 11/14/23 11:40 Pulse Rate 71 Respiratory Rate 29 H Blood Pressure 158/81 H 156/83 H Pulse Oximetry 97 Oxygen Delivery Method 11/14/23 11:45 11/14/23 11:45 11/14/23 11:50 Pulse Rate 70 Respiratory Rate 28 H Blood Pressure 151/89 H 154/90 H Pulse Oximetry 96 Oxygen Delivery Method 11/14/23 11:50 11/14/23 11:55 11/14/23 11:55 Pulse Rate 69 70 Respiratory Rate 24 24 Blood Pressure 153/82 H Pulse Oximetry 98 96 Oxygen Delivery Method 11/14/23 12:00 11/14/23 12:00 Pulse Rate 69 Respiratory Rate 27 H Blood Pressure 154/86 H Pulse Oximetry 97 Oxygen Delivery Method Medical Decision Making Lab Data Lab results reviewed: Yes I reviewed the patient's lab results. 11/14/23 09:55 11/14/23 09:55 Labs: Lab Results 11/14/23 Range/Units 09:55 WBC 11.2 H (4.5-11.0) X10^3/uL RBC 4.68 (4.5-5.9) X10^6/uL Hgb 14.4 (13.5-17.5) g/dL Hct 41.8 (41-53) % MCV 89.3 (80-100) fL MCH 30.8 (26-34) PG MCHC 34.5 (30-36) % RDW 12.8 (11.6-14.8) % Plt Count 159 (150-400) X10^3/uL Neut % (Auto) 73.6 (50-75) % Lymph % (Auto) 11.9 L (25-40) % Dixon % (Auto) 13.2 (3-14) % Eos % (Auto) 0.4 L (2-4) % Baso % (Auto) 0.9 (0-2) % Neut # (Auto) 8300 H (1594-4459) /uL Lymph # (Auto) 1300 (0468-8646) /uL Dixon # (Auto) 1500 H (0-900) /uL Eos # (Auto) 0 (0-450) /uL Baso # (Auto) 100 (0-100) /uL PT 17.9 H (9.4-12.5) SECONDS INR 1.6 H (0.9-1.3) APTT 35 (25.1-36.5) SECONDS Sodium 131 L (137-145) mmol/L Potassium 3.0 L (3.4-5.1) mmol/L Chloride 96 L (98-107) mmol/L Carbon Dioxide 27 (22-32) mmol/L BUN 30 H (9-20) mg/dL Creatinine 1.29 H (0.66-1.25) mg/dL Estimated GFR 57 L (>60) mL/min BUN/Creatinine Ratio 23.3 H (6-22) Glucose 110 (80-110) mg/dL Calcium 8.8 (8.4-10.2) mg/dL Total Bilirubin 2.3 H (0.2-1.3) mg/dL AST 69 H (17-59) IU/L ALT 25 (<50) IU/L Alkaline Phosphatase 61 (38-126) U/L Total Creatine Kinase 1590 H (55-170) U/L Troponin I 0.047 H (0.01-0.034) ng/mL Total Protein 6.6 (6.3-8.2) g/dL Albumin 4.0 (3.5-5.0) g/dL Globulin 2.6 (1.7-4.1) g/dL Albumin/Globulin Ratio 1.5 (1.0-2.8) Lipase 56 (23-300) U/L Imaging Data CT scan - head: Radiologist's Impression: PROCEDURE: CT HEAD/BRAIN WO CON INDICATIONS: Fall on thinners TECHNIQUE: Noncontrast 4.5 mm thick angled axial sections acquired from the foramen magnum to the vertex, with coronal and sagittal reformats. For radiation dose reduction, the following was used: automated exposure control, adjustment of mA and/or kV according to patient size. COMPARISON: [facility], CT, CT HEAD/BRAIN WO CON, 12/20/2020, 13:12. FINDINGS: Image quality: Diagnostic. CSF spaces: Basal cisterns are patent. No extra-axial fluid collections. The ventricles are symmetric in size and shape. Brain: No intracranial bleeds or masses. 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 There is cerebral volume loss for age, with resultant ventricular and sulcal prominence. There are periventricular and deep white matter chronic small vessel ischemic changes. There is intracranial internal carotid artery atherosclerosis. Skull and face: Calvarium and visualized facial bones appear intact, without suspicious lesions. Left periorbital facial soft tissue hematoma. Sinuses: Visualized sinuses and mastoids are clear. IMPRESSION: No acute intracranial pathology. CT - cervical spine: Radiologist's Impression: ROCEDURE: CT CERVICAL SPINE WO CON INDICATIONS: Fall on thinners TECHNIQUE: Noncontrast 3 mm thick sections acquired from the skull base to the T4 level. Sagittal and coronal reformats were then constructed. For radiation dose reduction, the following was used: automated exposure control, adjustment of mA and/or kV according to patient size. COMPARISON: None. FINDINGS: Image quality: Image quality degraded by patient motion artifact. Bones: No fractures or dislocations. Visualized superior ribs are intact. Spine degenerative disc disease and facet arthropathy. Soft tissues: Prevertebral soft tissues are normal in thickness. No paravertebral hematomas. No apical pneumothoraces. IMPRESSION: No fracture or acute osseous lesion within limitations related to motion artifact. If symptoms and/or clinical suspicion for pathology persists, evaluation with MRI should be considered for further assessment. CT face: Radiologist's Impression: PROCEDURE: CT FACIAL BONES WO CON INDICATIONS: Left orbital injury after fall TECHNIQUE: Noncontrast 2.5 mm thick axial images acquired from the mandible through the frontal sinuses, with coronal and sagittal reformatting. For radiation dose reduction, the following was used: automated exposure control, adjustment of mA and/or kV according to patient size. COMPARISON: None. FINDINGS: Image quality: Degraded by patient motion artifact Bones and teeth: Orbital sibley are intact. Sinus sibley show no fracture or deformity. Nasal bones and septum are intact. Visualized portions of the mandible demonstrate no fractures or subluxation. Zygomatic arches are intact. Pterygoid plates are intact. Visualized portions of the skull base and auditory canals are intact. Sinuses: Mild mucosal thickening in the maxillary sinuses and frontal sinuses. Mastoid air cells are aerated. Soft tissues: Left periorbital facial soft tissue hematoma. No enlarged lymph nodes. No soft tissue lacerations or debris. Vascular: Visualized vascular structures appear normal in the absence of contrast. Bony vascular foramina and canals are intact. IMPRESSION: Image quality degraded by patient motion artifact. Minimally displaced right nasal bone fracture of indeterminate age. No additional fractures within limitations of the study CT chest/abd/pelvis: Radiologist's Impression: PROCEDURE: CT CHEST ABD PEL W CON INDICATIONS: Left-sided chest wall and abdominal bruising low back pain TECHNIQUE: After the administration of intravenous contrast, 5 mm thick sections acquired from the lung apices to the symphysis. 2.5 mm thick coronal and sagittal reformats were acquired. Additional 7 mm thick coronal maximum intensity projection (MIP) reformats acquired through the lungs. Optional 10-minute delayed imaging may be performed from the kidneys to the bladder. For radiation dose reduction, the following was used: automated exposure control, adjustment of mA and/or kV according to patient size. COMPARISON: [facility], CT, CT ABD PELVIS W&WO CON IVP, 08/01/2016, 8:22. FINDINGS: Image quality: Diagnostic. CHEST: Lower Neck: No enlarged lymph nodes. Thyroid: No thyroid nodules which require sonographic evaluation. Axillae: No enlarged lymph nodes. Chest Wall: No subcutaneous gas. Left chest wall cardiac pacer. Lungs and Pleura: No pulmonary contusions or lacerations. No acute airspace opacities. No pneumothorax or hemothorax. Mediastinum: No mediastinal hematomas. 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 Trace pericardial effusion. Thoracic aorta and pulmonary arteries demonstrate normal size and enhancement. No mediastinal or hilar adenopathy. Esophagus is normal in caliber. No hiatal hernia. ABDOMEN: Liver: No lacerations. Gallbladder: Gallbladder is surgically absent. Biliary ducts: No biliary dilation. Pancreas: Homogenous enhancement. Spleen: Homogenous enhancement without laceration or hematoma. Adrenal Glands: Symmetric enhancement. Kidneys and Ureters: Symmetric enhancement. 4 millimeter nonobstructing stone in the dependent portion of the left renal pelvis. Moderate distal right ureteral dilatation with ectopic insertion on the urinary bladder stable compared to August 01, 2016. No solid mass. No complex renal cystic lesion which requires follow up. Stomach and Bowel: Normal colonic caliber, without significant wall thickening. Peritoneum: No abnormal intraperitoneal fluid. No free air. Ventral Wall: No hernia. Abdominal Nodes: No retroperitoneal or mesenteric adenopathy by size criteria. Vessels: Aorta and inferior vena cava are normal in size. PELVIS: Pelvic Organs: Unremarkable. Bladder: Normal thickness. Pelvic Nodes: No enlarged lymph nodes. Miscellaneous: No inguinal hernias are seen. Bones: Pelvic ring and hip joints appear intact. No displaced rib fractures. Spine degenerative disc disease and facet arthropathy. Right hip arthroplasty. IMPRESSION: No evidence of acute traumatic injury to the chest, abdomen or pelvis. ECG Data Attestation: I personally reviewed and interpreted this ECG as follows: Interpretation: Ventricularly paced Rate is 70 MDM Narrative Medical decision making narrative: Patient does have an elevation of the CK and a bump in his creatinine. He was given fluids. This is most likely because he was lying on the ground for most of the night. His brother was at bedside. He has had 2 proximally 2 falls over the past 24 hours. He was having lower back pain but this is not new for him. Although it is worse since the falls. He was difficulty moving his right leg. CT scan showed no acute pathology. Given his falls and the elevation in CK will admit to the hospital. Discussed case with Dr. Jones who is the hospitalist who will admit for further evaluation and treatment. Discussed the need for admission with the patient. He expressed understanding agreement as well. Discharge Plan Departure Patient Disposition: Admitted as Observation Clinical Impression: Rhabdomyolysis, Contusion of eye, left, Lower back pain, Acute kidney injury Admit Date/Time: 11/14/23 12:01 Admit Provider: Herve Jones
--- NOTE | 2023-11-14 10:02 | EKG_ITS ---
[facility] [id number] [place] [address] Test Date: 2023-11-14 Pat Name: Ben Avery Department: Room: Gender: Male Cigar Bander: : 1945 Requested By: Order Number: [id number] Reading MD: Herve Jones Measurements Intervals [place] Rate: 70 P: SC: QRS: 220 QRSD: 198 T: 109 QT: 512 QTc: 552 Interpretive Statements Ventricular-paced rhythm Biventricular pacemaker detected Electronically Signed On 11-14-2023 15:11:40 PDT by Herve Jones
[2023-11-14 10:11] LABS: Add Manual Diff / Slide Review NO; Basophils Absolute Auto 100 /uL (0-100); Basophils Percent Auto 0.9 % (0-2); Eosinophils Absolute Auto 0 /uL (0-450); Eosinophils Percent Auto 0.4 % (2-4); Hematocrit 41.8 % (41-53); Hemoglobin 14.4 g/dL (13.5-17.5); Lymphocytes Absolute Auto 1300 /uL (1100-4500); Lymphocytes Percent Auto 11.9 % (25-40); Mean Corpuscular HGB Conc 34.5 % (30-36); Mean Corpuscular Hemoglobin 30.8 PG (26-34); Mean Corpuscular Volume 89.3 fL (80-100); Monocytes Absolute Auto 1500 /uL (0-900); Monocytes Percent Auto 13.2 % (3-14); Neutrophils Absolute Auto 8300 /uL (1500-7000); Neutrophils Percent Auto 73.6 % (50-75); Platelet Count 159 X10^3/uL (150-400); Red Blood Cell Count 4.68 X10^6/uL (4.5-5.9); Red Cell Distribution Width 12.8 % (11.6-14.8); White Blood Cell Count 11.2 X10^3/uL (4.5-11.0)
[2023-11-14 10:18] LABS: INR 1.6 (0.9-1.3); Prothrombin Time 17.9 SECONDS (9.4-12.5)
[2023-11-14 10:20] LABS: PTT Partial Thromboplastin Tim 35 SECONDS (25.1-36.5)
--- NOTE | 2023-11-14 10:21 | PC.NURSE ---
Patient arrives and provider immediately at patient bedside. Patient arrives via BLS and no c-collar in place. This RN also at bedside taking ems report. Patient states that he fell last night by tripping on his cane and struck his head on [place] drawers on the way down. Patient has a laceration above left eye. Patient has ravi orbital bruising around left eye with dried blood throughout his face. Patient states that he was on the ground since the fall until EMS arrival. Patient states that his ex called and when he didn't answer she came and found him on the floor. Patient states that he takes eliquis 5mg bid but has yet to take daily medications. Patient has significant bruising throughout chest, abdominal, and left back wall. Patient rates pain 10/10 throughout his body. This RN asked provider if he would like patient in c-collar. Provider responded in the negative. This RN accompanied denies having any shortness of breath. Patient is alert and orientated x 4. Another RN attempted to place IV twice once in left ac and left forearm without success. optics test technician confirmed with provider to delay imagining until line could be placed. Charge nurse successfully placed line via ultrasound in right ac at 10:21. optics test technician informed at 10:22. CT arrival to take patient at 10:29. This RN accompanies patient to CT.
[2023-11-14 10:23] LABS: Alanine Aminotransferase 25 IU/L (<50); Albumin Globulin Ratio 1.5 (1.0-2.8); Alkaline Phosphatase 61 U/L (38-126); Aspartate Aminotransferase 69 IU/L (17-59); BUN Creatinine Ratio 23.3 (6-22); Bilirubin Total 2.3 mg/dL (0.2-1.3); Blood Urea Nitrogen 30 mg/dL (9-20); Calcium 8.8 mg/dL (8.4-10.2); Carbon Dioxide 27 mmol/L (22-32); Chloride 96 mmol/L (98-107); Creatine Kinase 1590 U/L (55-170); Estimated Glomerular Filt Rate 57 mL/min (>60); Globulin 2.6 g/dL (1.7-4.1); Glucose 110 mg/dL (80-110); HEMOLYSIS 18 (0-50); Lipase 56 U/L (23-300); Sodium 131 mmol/L (137-145); Total Protein 6.6 g/dL (6.3-8.2)
[2023-11-14 10:34] LABS: Troponin I 0.047 ng/mL (0.01-0.034)
--- NOTE | 2023-11-14 10:52 | PC.NURSE ---
Patient arrived with wallet with ID, cards and 264 dollars in white. Patient brother Hood Avery arrived and patient asked for brother to take his wallet with him. Patient also has his cell phone but is choosing to keep that with him. This RN placed patient composition roll maker and cutter back of patient phone with patient authorization.
[2023-11-14] MEDS: SODIUM CHLORIDE 0.9% 1,000 ML 150 ML IV (10:58)
--- NOTE | 2023-11-14 13:00 | PT-IP ANOTE ---
Pt admitted after fall and down. Left orbital injury, high creatinine kinase and great toe is stubbed/broken nail and dried blood. He is currently on ED gurney in the ED with IV hooked up. Will wait until he arrives to floor for evaluation for better ability to assess mobility. Con't PT efforts at at later time. It appears pt will stay overnight.
[2023-11-14] MEDS: SODIUM CHLORIDE 0.45% 1,000 ML 100 ML IV ×2 (13:54→23:09)
[2023-11-14] MEDS: HEPARIN 5,000 UNIT/ML VIAL 5000 UNIT SUBCUT ×2 (13:54→21:35)
--- NOTE | 2023-11-14 14:50 | PM.HP.1 ---
History of Present Illness History of Present Illness Date Patient Seen: 11/14/23 Time Patient Seen: 14:50 Chief complaint: Fall, on thinners, found down Narrative: The patient is a 78-year-old male with history of aortic stenosis and TAVR within the last year in [place]. The patient presented to the ED by EMS for a fall. He tells me that he was looking for something last night, using his cane, and lost balance and fell. He was stuck on the floor overnight, for about 10 hours. He arrived to the ED with some bruising on his torso and a left periorbital hematoma. A CT of the head, C-spine, chest and abdomen was unremarkable. He denies any focal pain over his arms or legs. He did have a mildly elevated CPK and creatinine. He was started on IV fluids in the emergency department. He did not have evidence of confusion or acute injury other than those mentioned. He denies chest pain, palpitations, syncope, or seizures. [facility] Social History household members: none Smoking Status: Former smoker alcohol intake: current Meds Home Medications and Allergies Home Medications Medication Instructions Recorded Confirmed Type atorvastatin 40 mg tablet 40 mg PO QPM 12/20/20 11/14/23 History carvedilol 6.25 mg tablet See Rx Instructions .Route .COMPLEX 12/20/20 11/14/23 History hydrochlorothiazide 50 mg PO QAM 12/20/20 11/14/23 History mexiletine 200 mg capsule See Rx Instructions .Route .COMPLEX 12/20/20 11/14/23 History tamsulosin 0.4 mg capsule 0.4 mg PO BID 12/20/20 11/14/23 History aspirin 162 mg PO DAILY 12/21/20 11/14/23 History Allergies Allergy/AdvReac Type Severity Reaction Status Date / Time No Known Drug Allergies Allergy Verified 12/20/20 10:26 Review of Systems Review of Systems Narrative: All else reviewed and otherwise unremarkable except as noted in the history and physical. Exam Vital Signs (past 8 hours): - 11/14/23 09:54 11/14/23 09:56 11/14/23 09:59 Temperature 99.4 F Pulse Rate 73 71 69 Respiratory Rate 25 H 17 23 Blood Pressure Pulse Oximetry 96 94 97 Oxygen Delivery Method Room Air Oxygen Flow Rate 06/27/24 09:59 11/14/23 10:00 11/14/23 10:00 Temperature Pulse Rate 69 Respiratory Rate 18 Blood Pressure 134/80 130/83 Pulse Oximetry 98 Oxygen Delivery Method Oxygen Flow Rate 11/14/23 10:05 11/14/23 10:10 11/14/23 10:15 Temperature Pulse Rate 70 71 71 Respiratory Rate 25 H 28 H 20 Blood Pressure Pulse Oximetry 98 97 Oxygen Delivery Method Room Air Oxygen Flow Rate 11/14/23 10:16 11/14/23 10:16 11/14/23 10:20 Temperature Pulse Rate 71 71 Respiratory Rate 26 H 28 H Blood Pressure 109/84 Pulse Oximetry 92 98 Oxygen Delivery Method Oxygen Flow Rate 11/14/23 10:20 11/14/23 10:25 11/14/23 10:25 Temperature Pulse Rate 71 Respiratory Rate Blood Pressure 123/79 136/74 Pulse Oximetry 98 Oxygen Delivery Method Oxygen Flow Rate 11/14/23 10:44 11/14/23 10:45 11/14/23 10:45 Temperature Pulse Rate 56 L Respiratory Rate 19 Blood Pressure 135/74 Pulse Oximetry 99 97 Oxygen Delivery Method Oxygen Flow Rate 11/14/23 10:50 11/14/23 10:50 11/14/23 10:55 Temperature Pulse Rate 69 71 Respiratory Rate 22 34 H Blood Pressure 130/81 Pulse Oximetry 97 97 Oxygen Delivery Method Room Air Room Air Oxygen Flow Rate 11/14/23 10:55 11/14/23 11:00 11/14/23 11:00 Temperature Pulse Rate 70 Respiratory Rate 22 Blood Pressure 143/83 H 154/92 H Pulse Oximetry 98 Oxygen Delivery Method Oxygen Flow Rate 11/14/23 11:05 11/14/23 11:05 11/14/23 11:10 Temperature Pulse Rate 69 70 Respiratory Rate 24 22 Blood Pressure 153/93 H Pulse Oximetry 96 97 Oxygen Delivery Method Oxygen Flow Rate 11/14/23 11:10 11/14/23 11:15 11/14/23 11:15 Temperature Pulse Rate 70 Respiratory Rate 22 Blood Pressure 142/92 H 164/80 H Pulse Oximetry 97 Oxygen Delivery Method Oxygen Flow Rate 11/14/23 11:20 11/14/23 11:20 11/14/23 11:25 Temperature Pulse Rate 69 69 Respiratory Rate 22 22 Blood Pressure 175/82 H Pulse Oximetry 95 97 Oxygen Delivery Method Oxygen Flow Rate 11/14/23 11:25 11/14/23 11:30 11/14/23 11:30 Temperature Pulse Rate 70 Respiratory Rate 38 H Blood Pressure 153/74 H 153/90 H Pulse Oximetry 97 Oxygen Delivery Method Oxygen Flow Rate 11/14/23 11:35 11/14/23 11:35 11/14/23 11:40 Temperature Pulse Rate 69 71 Respiratory Rate 24 29 H Blood Pressure 158/81 H Pulse Oximetry 98 97 Oxygen Delivery Method Oxygen Flow Rate 11/14/23 11:40 11/14/23 11:45 11/14/23 11:45 Temperature Pulse Rate 70 Respiratory Rate 28 H Blood Pressure 156/83 H 151/89 H Pulse Oximetry 96 Oxygen Delivery Method Oxygen Flow Rate 11/14/23 11:50 11/14/23 11:50 11/14/23 11:55 Temperature Pulse Rate 69 70 Respiratory Rate 24 24 Blood Pressure 154/90 H Pulse Oximetry 98 96 Oxygen Delivery Method Oxygen Flow Rate 11/14/23 11:55 11/14/23 12:00 11/14/23 12:00 Temperature Pulse Rate 69 Respiratory Rate 27 H Blood Pressure 153/82 H 154/86 H Pulse Oximetry 97 Oxygen Delivery Method Oxygen Flow Rate 11/14/23 12:05 11/14/23 12:05 11/14/23 12:10 Temperature Pulse Rate 70 70 Respiratory Rate 30 H 35 H Blood Pressure 150/85 H Pulse Oximetry 97 Oxygen Delivery Method Oxygen Flow Rate 11/14/23 12:10 11/14/23 12:15 11/14/23 12:15 Temperature Pulse Rate 69 Respiratory Rate 29 H Blood Pressure 155/85 H 177/83 H Pulse Oximetry 96 Oxygen Delivery Method Oxygen Flow Rate 11/14/23 12:20 11/14/23 12:21 11/14/23 12:21 Temperature Pulse Rate 70 69 Respiratory Rate 37 H 29 H Blood Pressure 176/79 H Pulse Oximetry 96 98 Oxygen Delivery Method Oxygen Flow Rate 11/14/23 12:25 11/14/23 12:25 11/14/23 12:30 Temperature Pulse Rate 69 69 Respiratory Rate 28 H 25 H Blood Pressure 162/70 H Pulse Oximetry 97 97 Oxygen Delivery Method Oxygen Flow Rate 11/14/23 12:31 11/14/23 12:31 11/14/23 12:35 Temperature Pulse Rate 69 69 Respiratory Rate 25 H 27 H Blood Pressure 161/85 H Pulse Oximetry 97 97 Oxygen Delivery Method Oxygen Flow Rate 11/14/23 12:35 11/14/23 12:40 11/14/23 12:40 Temperature Pulse Rate 69 Respiratory Rate 30 H Blood Pressure 160/84 H 166/89 H Pulse Oximetry 97 Oxygen Delivery Method Oxygen Flow Rate 11/14/23 12:45 11/14/23 12:45 11/14/23 12:50 Temperature 98.2 F Pulse Rate 69 69 Respiratory Rate 31 H 28 H Blood Pressure 161/83 H Pulse Oximetry 97 98 Oxygen Delivery Method Oxygen Flow Rate 11/14/23 12:50 11/14/23 12:54 11/14/23 13:19 Temperature 98.2 F 97.9 F Pulse Rate 70 Respiratory Rate 18 Blood Pressure 168/87 H 122/82 Pulse Oximetry 97 Oxygen Delivery Method Oxygen Flow Rate 0 Oxygen Delivery Method Room Air Oxygen Flow Rate 0 Narrative Exam Narrative: NAD, alert and oriented, fluent speech, calm. Normocephalic skull, EOMI, anicteric sclera, symmetric pupils. Oropharynx unremarkable, no droop. Neck supple, midline trachea, no adenopathy. Lungs clear, normal rate and effort. Heart regular, no murmur gallop or rub. Abdomen is soft, non distended and non tender. Extremities are free of edema. Skin is free of rash or lesions. Other than a left periorbital hematoma and scattered areas of ecchymosis the chest and upper abdomen. Joints are not swollen or deformed. Judgment appears to be normal. Objective Imaging Multiple studies:: My impression: CT brain negative for acute changes. CT cervical spine negative for acute fracture. CT face reveals an indeterminate right nasal bone fracture. CT chest, abdomen, and pelvis negative for acute traumatic findings. Labs 11/14/23 09:55 11/14/23 09:55 Labs: Laboratory Results - last 24 hr 11/14/23 09:55 WBC 11.2 H RBC 4.68 Hgb 14.4 Hct 41.8 MCV 89.3 MCH 30.8 MCHC 34.5 RDW 12.8 Plt Count 159 Neut % (Auto) 73.6 Lymph % (Auto) 11.9 L [place] % (Auto) 13.2 Eos % (Auto) 0.4 L Baso % (Auto) 0.9 Neut # (Auto) 8300 H Lymph # (Auto) 1300 [place] # (Auto) 1500 H Eos # (Auto) 0 Baso # (Auto) 100 PT 17.9 H INR 1.6 H APTT 35 Sodium 131 L Potassium 3.0 L Chloride 96 L Carbon Dioxide 27 BUN 30 H Creatinine 1.29 H Estimated GFR 57 L BUN/Creatinine Ratio 23.3 H Glucose 110 Calcium 8.8 Total Bilirubin 2.3 H AST 69 H ALT 25 Alkaline Phosphatase 61 Total Creatine Kinase 1590 H Troponin I 0.047 H Total Protein 6.6 Albumin 4.0 Globulin 2.6 Albumin/Globulin Ratio 1.5 Lipase 56 Assessment & Plan Assessment & Plan narrative: 1. Fall, present on admission and active. 2. Traumatic rhabdomyolysis, present on admission and active. 3. Acute kidney injury, present on admission and active. 4. Left periorbital hematoma, present on admission and active. 5. Aortic stenosis with history of recent TAVR, present on admission and stable 6. Hypertension, present on admission and stable. 7. ICD, present on admission and stable. 8. BPH, present on admission and stable. 9. I LD, present on admission and stable. Plan: -IV fluids -daily CPK -monitor renal function and urinary output. -physical therapy assessment and occupational therapy assessment to evaluate gait stability and facilitate discharge planning. He was admitted observation status with anticipated 1 [place] need for hospital services. Full resuscitation. Time Spent With Patient Time with patient: 30 to 49 minutes with 50% spent counseling/coordinating care Quality VTE Deep Vein Thrombosis/Pulmonary Embolism Present on Admission: No MIPS - Admit I confirm the patient?s Advance Care Plan is present, Code status is documented, Surrogate decision maker is in patient?s record [If Yes, STOP here]: Yes MIPS - Meds 'Current medications' to include all prescriptions, [id number] products, herbals, cannabis/cannabidiol products, and vitamin/mineral/dietary (nutritional) supplements. I have utilized all available resources to obtain, update, or review the patient?s current medications. [If Yes, STOP here]: Yes
[2023-11-14 18:25] LABS: RBC Urine None Seen (0-5/HPF); Urine Volume 10mL (spun); WBC Urine 1-5/HPF (0-5/HPF)
[2023-11-14 18:26] LABS: Bacteria Urine None Seen; Culture Indicated Urine Cult Not Indicated; Hyaline Casts Urine 1-5/LPF; Mucus Urine 1+ (Negative); Renal Epithelial Cells Urine 0-1/HPF (0-1/HPF); Squamous Epithelial Cell Urine 0-1 /HPF (0-5/HPF)
[2023-11-14] MEDS: TAMSULOSIN 0.4 MG CAPSULE PO (21:34)
[2023-11-14] MEDS: carvediloL 3.125 MG TABLET 6.25 MG PO (21:34)
[2023-11-15] MEDS: ACETAMINOPHEN 325 MG TABLET 650 MG PO ×2 (02:04→10:07)
[2023-11-15 04:49] VITALS: BP 117/81; PULSE 70; RESP 20; TEMP 37.5; O2SAT 95
[2023-11-15 06:27] LABS: Add Manual Diff / Slide Review NO; Basophils Absolute Auto 100 /uL (0-100); Basophils Percent Auto 0.7 % (0-2); Eosinophils Absolute Auto 100 /uL (0-450); Eosinophils Percent Auto 1.9 % (2-4); Hematocrit 38.4 % (41-53); Hemoglobin 13.6 g/dL (13.5-17.5); Lymphocytes Absolute Auto 1400 /uL (1100-4500); Lymphocytes Percent Auto 18.1 % (25-40); Mean Corpuscular HGB Conc 35.5 % (30-36); Mean Corpuscular Hemoglobin 31.5 PG (26-34); Mean Corpuscular Volume 88.7 fL (80-100); Monocytes Absolute Auto 1000 /uL (0-900); Monocytes Percent Auto 13.5 % (3-14); Neutrophils Absolute Auto 5100 /uL (1500-7000); Neutrophils Percent Auto 65.8 % (50-75); Platelet Count 138 X10^3/uL (150-400); Red Blood Cell Count 4.32 X10^6/uL (4.5-5.9); Red Cell Distribution Width 12.8 % (11.6-14.8); White Blood Cell Count 7.7 X10^3/uL (4.5-11.0)
[2023-11-15 06:37] LABS: BUN Creatinine Ratio 25.6 (6-22); Blood Urea Nitrogen 23 mg/dL (9-20); Calcium 8.4 mg/dL (8.4-10.2); Carbon Dioxide 25 mmol/L (22-32); Chloride 97 mmol/L (98-107); Estimated Glomerular Filt Rate > 60 mL/min (>60); Glucose 95 mg/dL (80-110); HEMOLYSIS < 15 (0-50); Sodium 129 mmol/L (137-145)
[2023-11-15 06:41] LABS: Potassium 2.7 mmol/L (3.4-5.1)
[2023-11-15 06:50] LABS: Creatine Kinase 670 U/L (55-170)
[2023-11-15 09:00] VITALS: BP 119/83; PULSE 71; RESP 18; TEMP 36.6
--- NOTE | 2023-11-15 09:30 | PT.IIE ---
Physical Therapy Inpatient Evaluation/Re-Eval M1 PT/OT-IP Prior Functional Status Start: 11/14/23 12:48 Freq: NEEDED Status: Active Protocol: Document 11/15/23 12:32 [facility] (Rec: 11/15/23 12:55 [facility] [id number]) Medical Review Prior Functional Status Medical History Reviewed Yes Mobility and Gait Pt states used a SPC at all times. Activities of Daily Living and IADL's Pt states able to do all ADL, IADL, and drives prior to having falls. Prior Functional Level (Other details) Pt poor historian as at times jokes around and not surre if it is pt's prior level of function. Best to clarify set- up with family. Pt states lives in [place], however pt's chart states [facility]. Pt also having low potassium and sodium numbers which may also be effecting his cognition at this time. Social History Household Members none Living Arrangements House Number of Stairs To Enter/Railing? Pt states has 14 steps with get to his front down and railing intermittently. Home Environment Standard Height Toilet,Walk in Shower Home Equipment Straight Cane,Shower Seat with Backrest,Hand Held Shower, Long Handled Shoe Horn,Finance Vice President Additional Social History Comment Pt states has an adjustable bed. M2 PT-IP Current Condition Start: 11/14/23 12:48 Freq: NEEDED Status: Active Protocol: Document 11/15/23 09:30 [facility] (Rec: 11/15/23 13:10 [id number]) Physical Therapy Current Condition Current Condition Evaluation Date 11/15/23 Treatment Diagnosis s/p fall; difficulty in walking Onset Date 11/14/23 M3 PT-IP Subjective Start: 11/14/23 12:48 Freq: NEEDED Status: Active Protocol: Document 11/15/23 09:30 [facility] (Rec: 11/15/23 13:10 AB [id number]) Subjective Physical Therapy Visit Type Type Initial Evaluation Visit Start Time 09:30 Visit Stop Time 10:15 Number of BROADCAST OPERATIONS DIRECTOR Visits 0 Physical Therapy Visit Comments Patient Comments stated that he cannot move Therapy Pain Assessment Pain When Pain Assessed At Rest Pain Present Pain Present Pain Reported Location Generalized Intensity 10 M4 PT-IP Mobility and Gait Start: 11/14/23 12:48 Freq: NEEDED Status: Active Protocol: Document 11/15/23 09:30 [facility] (Rec: 11/15/23 13:10 AB [id number]) PT-Bed Mobility Assessment Supine to Sit Supine to Sit Maximum Assistance,1 Person Assistance,2 Person Assistance ,Head of Bed Elevated,Bedrails Scooting Scooting to Edge of Bed Maximum Assistance PT-Transfer Assessment Sit to and From Stand Sit to and from Stand Maximum Assistance,2 Person Assistance,Use of Upper Extremities Equipment Transfer Assistive Device Gait Belt,Front Wheeled Walker Orthotic/Prosthetic Devices or Brace: No Transfers Transfer Destination Chair Transfer Technique Stand Step Pivot Transfer Ability Level of Assist Maximum Assistance,1 Person Assistance,2 Person Assistance ,Use of Upper Extremities Comments Mobility Comments pt supine in bed. pt's brother in room. obtained PLOF and home set up. pt c/o generalized pain but more on low back and L hip. pt's brother stated that pt is needing a L hip replacement. BP: 125/79. pt completed supine to sit log roll max A x 1-2 and max cues. pt used bed rail. pt required max A for scooting to EOB. completed sit to stand max A x 2 and max cues. step transfer to chair using FWW max A x 1- 2 and max cues. pt rested. agreed to ambulate. attempted sit to stand from chair max A x 2 and unable with 2 attempts. attempted again with max A x 3 and pt able to stand using fWW for support. max A x 1-2 and chair follow for ambulation using FWW ~ 15 ft. pt agreed to stay up on the chair. positioned pt on the chair. call light and table placed within reach. Gait Assessment Gait Gait Assistance Required: Maximum Assistance,1 Person Assist,2 Person Assist Distance (Feet) 15 Able to Maintain Weight Bearing Status Yes During Gait Assistive Devices Assistive Device Gait Belt,Front Wheeled Walker Orthotic/Prosthetic Devices or Brace: No Gait Deviations General Gait Pattern Antalgic,Ataxic,Decreased Stride Length,Decreased Feet Clearance,Step-to Gait Factors Limiting Gait Function Factors Limiting Gait Function Decreased Activity Tolerance, Decreased Sensation,Decreased Strength,Difficulty Following Directions,Limited Range of Motion,Pain,Poor Balance,Poor Safety Awareness PT-Balance Assessment Sitting Balance and Reactions Static Sitting Balance Ability Good Dynamic Sitting Balance Ability Fair Standing Balance and Reactions Static Standing Balance Ability Poor Dynamic Standing Balance Ability Poor Device Used FWW M5 PT-IP Objective Assessments Start: 11/14/23 12:48 Freq: NEEDED Status: Active Protocol: Document 11/15/23 09:30 [facility] (Rec: 11/15/23 13:10 AB [id number]) Orientation Orientation/Cognition Level of Alertness Alert Language Function Ability Hard of Hearing Safety Awareness Decreased Safety Awareness Memory Description Short Term Impaired Gross Range of Motion Lower Extremity ROM Assessment Within Functional Limits Strength Lower Extremity Strength Assessment Bilaterally Impaired Comments Strength Comments RLE: 4-/5 LLE 3+/5 Sensation Assessment Sensation Sensation Description Numbness Comments Sensation Comments chronic B feet numbness per pt Muscle Tone Muscle Tone WNL Yes M6 PT-IP Treatment Start: 11/14/23 12:48 Freq: NEEDED Status: Active Protocol: Document 11/15/23 09:30 [facility] (Rec: 11/15/23 13:10 AB [id number]) Physical Therapy Treatment Education Education Provided Safety M7 PT-IP Assessment and Plan Start: 11/14/23 12:48 Freq: NEEDED Status: Active Protocol: Document 11/15/23 09:30 [facility] (Rec: 11/15/23 13:10 AB [id number]) PT Summary Assessment and Plan Potential Rehabilitation Potential Fair Status of Condition at Evaluation Evolving Summary Impairments Pain,ROM,Strength,Balance, Coordination,Sensation,Tone, Cognition,Bed Mobility, Transfers,Gait,Activity Tolerance Assessment Summary pt is a 78 y/o M s/p fall x 2 within 24 hours. pt with c/o generalized pain affecting mobility assistance and activity tolerance. pt requiring max A x 2 for mobility using FWW and will require SNF rehab to improve overall strength and mobility. Goals Bed Mobility Goal Minimal Assistance Transfer Goal Minimal Assistance,Front Wheeled Walker Gait Goal Minimal Assistance,Front Wheel Walker Gait Distance 100 Other Goals improve bed mobility, transfers, ambulation using FWW ~ 200 ft SBA up/down 3 steps using SPC SBA up/down 14 steps R rail descending + SPC SBA Days to Meet Goals 10 Frequency of Treatment Frequency Of Treatment Once a Day Treatment Plan Physical Therapy Treatment Plan Bed Mobility Training,Transfer Training,Gait Training, Therapeutic Exercise,Balance Retraining,Discharge Planning, Hot or Cold Pack,Neuromuscular Re-ed,Coordination Retraining ,Manual Therapy Precautions Other Precautions falls Recommendations To Nursing Amount of Assist Needed 3 or More Person Assist Discharge Recommendations PT Discharge Recommendations SNF Rehab Equipment Needed for Home Before FWW Discharge
[2023-11-15] MEDS: HEPARIN 5,000 UNIT/ML VIAL 5000 UNIT SUBCUT ×2 (10:07→21:47)
[2023-11-15] MEDS: ASPIRIN EC 81 MG TABLET 162 MG PO (10:07)
[2023-11-15] MEDS: TAMSULOSIN 0.4 MG CAPSULE PO ×2 (10:08→21:47)
[2023-11-15] MEDS: carvediloL 12.5 MG TABLET PO (10:09)
--- NOTE | 2023-11-15 11:35 | P.PN_ITS ---
Subjective Subjective Interval history: He was lower back pain. This is acute on chronic. CT yesterday was negative for any evidence of compression fracture. He feels extremely weak and was barely able to stand up with physical therapy. He lives at home alone. His brother joints min in his room this morning. He denies any cough or abdominal pain. Potassium and Na were low this morning. Exam Vital Signs (past 8 hours): - 11/15/23 04:49 11/15/23 09:00 Temperature 99.5 F 97.8 F Pulse Rate 70 71 Respiratory Rate 20 18 Blood Pressure 117/81 119/83 Pulse Oximetry 95 Oxygen Flow Rate 0 Oxygen Delivery Method Room Air Oxygen Flow Rate 0 Narrative Exam Narrative: NAD, alert and oriented. Fluent speech. Left periorbital hematoma. Lungs are clear, normal rate and effort. Heart is regular, no murmur gallop or rub. Abdomen is soft, non distended. Extremities are free of edema. Objective Labs 11/15/23 05:56 11/15/23 05:56 Labs: Laboratory Results - last 24 hr 11/14/23 11/15/23 12:30 05:56 WBC 7.7 RBC 4.32 L Hgb 13.6 Hct 38.4 L MCV 88.7 MCH 31.5 MCHC 35.5 RDW 12.8 Plt Count 138 L Neut % (Auto) 65.8 Lymph % (Auto) 18.1 L [place] % (Auto) 13.5 Eos % (Auto) 1.9 L Baso % (Auto) 0.7 Neut # (Auto) 5100 Lymph # (Auto) 1400 [place] # (Auto) 1000 H Eos # (Auto) 100 Baso # (Auto) 100 Sodium 129 L Potassium 2.7 L* Chloride 97 L Carbon Dioxide 25 BUN 23 H Creatinine 0.90 Estimated GFR > 60 BUN/Creatinine Ratio 25.6 H Glucose 95 Calcium 8.4 Total Creatine Kinase 670 H D Urine RBC None seen Urine WBC 1-5/hpf Ur Squamous Epith Cells 0-1 /hpf Ur Renal Epithelial Cell 0-1/hpf Urine Bacteria None seen Hyaline Casts 1-5/lpf Urine Mucus 1+ H Ur Culture Indicated? Cult not indicated Vol Urine Centrifuged 10ml (spun) PFSH Social History household members: none Smoking Status: Former smoker alcohol intake: current Assessment & Plan Assessment & Plan narrative: 1. Hypokalemia, new and active. 2. Hyponatremia, new and active. 3. Fall, present on admission and active. 4. Traumatic rhabdomyolysis, present on admission and active. CPK 670 today. 5. Acute kidney injury, present on admission and resolved. 6. Left periorbital hematoma, present on admission and active. 7. Aortic stenosis with history of recent TAVR, present on admission and stable 8. Hypertension, present on admission and stable. 9. ICD, present on admission and stable. 10. BPH, present on admission and stable. 11. Profound weakness with gait instability, present on admission and active. PLAN: -continue PT strengthening and assessments. -discharge planning. He did very poorly with physical therapy, he will require another 24 hours of IV fluids and to assess progression of his strength. He may require [facility] for his acute entire body weakness and gait instability. He has had 2 recent falls and is at high risk for adverse outcomes of future falls if he does not have his weakness assessed and improved. Quality VTE Deep Vein Thrombosis/Pulmonary Embolism Present on Admission: No
[2023-11-15] MEDS: POTASSIUM CHLORIDE 20 MEQ TAB 40 MEQ PO ×2 (12:04→17:15)
[2023-11-15] MEDS: SODIUM CHLORIDE 0.9% 1,000 ML 100 ML IV ×2 (12:05→22:28)
--- NOTE | 2023-11-15 12:15 | OT.IP.EVAL ---
Occupational Therapy Inpatient Evaluation/Re-Eval M1 PT/OT-IP Prior Functional Status Start: 11/14/23 12:48 Freq: NEEDED Status: Active Protocol: Document 11/15/23 12:32 [facility] (Rec: 11/15/23 12:55 [facility] [id number]) Medical Review Prior Functional Status Medical History Reviewed Yes Mobility and Gait Pt states used a SPC at all times. Activities of Daily Living and IADL's Pt states able to do all ADL, IADL, and drives prior to having falls. Prior Functional Level (Other details) Pt poor historian as at times jokes around and not surre if it is pt's prior level of function. Best to clarify set- up with family. Pt also having low potassium and sodium numbers which may also be effecting his cognition at this time. Social History Household Members none Living Arrangements House Number of Stairs To Enter/Railing? Pt states has 14 steps with get to his front down and railing intermittently. Home Environment Standard Height Toilet,Walk in Shower Home Equipment Straight Cane,Shower Seat with Backrest,Hand Held Shower, Long Handled Shoe Horn,Director Facilities Maintenance Additional Social History Comment Pt states has an adjustable bed. M2 OT-IP Current Condition Start: 11/15/23 12:31 Freq: Status: Active Protocol: Document 11/15/23 12:32 [facility] (Rec: 11/15/23 12:55 [facility] [id number]) Occupational Therapy Current Condition Current Condition Evaluation Date 11/15/23 Treatment Diagnosis Fall, Rhabdo, hypoatremia Diagnosis Onset Date 11/14/23 M3 OT- IP Subjective and Pain Start: 11/15/23 12:31 Freq: Status: Active Protocol: Document 11/15/23 12:32 [facility] (Rec: 11/15/23 12:55 [facility] [id number]) OT- Subjective Occupational Therapy Visit Type Type Initial Evaluation Visit Start Time 11:45 Visit Stop Time 12:15 Occupational Therapy Visit Comments Patient Comments Pt initially not able to carry a conversation when initially going to talk to the pt and then able to come back in several minutes and pt much clearer but still tends to joke around a lot. Patient/Caregiver Goals To get better. OT Pain Assessment Pain When Pain Assessed At Rest Pain Present Pain Present Pain Reported Location Left Leg Pain Behaviors Facial Grimacing,Guarding, Holding Area M4 OT- IP ADL's Start: 11/15/23 12:31 Freq: Status: Active Protocol: Document 11/15/23 12:32 [facility] (Rec: 11/15/23 12:55 [facility] [id number]) OT [id number] Comments OT Self-Feeding Comments Not at meal time. OT ADL-Grooming Comments OT Grooming Comments NOt performed. OT ADL-Oral Care Comments Oral Care Comments Not performed. OT ADL-Dressing General Eval Lower Body Dressing Ability Maximum Assistance Comments OT Dressing Comments Pt assist for socks and due to pain in his LLE will need assist and use of LB dressing equipment to assist. OT ADL-Toileting General Evaluation Toileting Ability Maximum Assistance Areas Needing Assistance Manage Clothing Devices Toileting Assistive Devices Urinal Comments OT Toileting Comments MAX AX 2 to assist to stand to the FWW and then CHEN for balance while pt holding to the urinal. OT ADL-Bathing Comments OT Bathing Comments Not performed. M5 OT- IP IADL's Start: 11/15/23 12:31 Freq: Status: Active Protocol: Document 11/15/23 12:32 [facility] (Rec: 11/15/23 12:55 [facility] [id number]) OT-Instrumental Activities of Daily Living Home Safety Awareness Ability to Problem Solve Emergency Able to Problem Solve Situations Home Safety Comments Pt aware that he will need assist and not able to care for himself at this time. Pt able to answer all home safety situations with good accuracy and increased time . Medication Management Medication Management Comments Pt states does his own. Money Management Money Management Comments Pt states does his own. Meal Preparation Meal Preparation Comments Pt will benefit from assist. Dry Cure Worker Dry Cure Worker Comments Pt will benefit from assist. Driving Driving Concerns Identified Regarding Safety M6 OT- IP Functional Cognition Start: 11/15/23 12:31 Freq: Status: Active Protocol: Document 11/15/23 12:32 [facility] (Rec: 11/15/23 12:55 [facility] [id number]) Cognitive Factors Limiting Selfcare Function Cognitive Ability Level of Alertness Alert Patient Orientation Name,Age,Birthday,Month,Year, Place,Situation Attention Span Ability Capable of Focused Attention, Capable of Sustained Attention Ability to Follow Commands Able to Follow One Step Commands with Increased Time, Able to Follow One Step Commands with Repetition Cognitive Comments Cognitive Assessment Comments Pt at time jokes around and at times very serious. Not sure it this is pt's baseline or still effected from low potassium and sodium level and from his fall. Pt also needing MAX vc for safety and increased time to intiate his movements. Pt will benefit from cognitive assessment, SLUMS as medically improves. Pt also not wearing his hearing aids and able to have pt put them in and seems to be doing better. OT- Vision and Hearing OT- Hearing Assessment OT- Hearing Assessment Hearing Impaired,Use of Hearing Aids OT- Vision Assessment Visual Acuity WFL Occular Pursuits WFL Visual Convergence WFL Visual [place] WFL M7 OT- IP Mobility and Balance Start: 11/15/23 12:31 Freq: Status: Active Protocol: Document 11/15/23 12:32 [facility] (Rec: 11/15/23 12:55 [facility] [id number]) OT-Transfer Assessment Sit to and From Stand Sit to and from Stand Maximum Assistance,2 Person Assistance Comments Mobility Comments Pt having difficulty to lean forwards and coordinate movements to scoot forwards in the chair MAX AX 2 to stand to the FWW and CHEN to stand for balance while pt using the urinal. MODX 1-2 to help ease down to the low chair. OT- Balance Assessment Sitting Balance and Reactions Static Sitting Balance Ability Fair Dynamic Sitting Balance Ability Fair Standing Balance and Reactions Static Standing Balance Ability Fair M8 OT- IP Objective Assessments Start: 11/15/23 12:31 Freq: Status: Active Protocol: Document 11/15/23 12:32 [facility] (Rec: 11/15/23 12:55 [facility] [id number]) OT Gross Range of Motion Upper Extremity Range of Motion Assessment Within Functional Limits OT Strength Upper Extremity Strength Assessment Within Functional Limits OT- Coordination Assessment Upper Extremity Finger to Nose Test Within Functional Limits OT Sensation Assessment Comments Summary Comments Intact for light touch. M9 OT- IP Assessment and Plan Start: 11/15/23 12:31 Freq: Status: Active Protocol: Document 11/15/23 12:32 [facility] (Rec: 11/15/23 12:55 [facility] [id number]) OT Summary Assessment and Plan Potential Rehabilitation Potential Good Analytic Complexity at Evaluation Moderate Summary OT Impairments Pain,Strength,Balance, Functional Cognition, Functional Mobility,Grooming, Dressing,Toileting,Bathing, Toilet Transfers,Shower Transfers,Activity Tolerance Progress Towards Goals Slow Progress due to Pain,Slow Progress due to Medical Issues,Slow Progress due to Activity Tolerance,Slow Progress due to Cognition Assessment Summary Per pt has had several falls recently and also has low potassium and sodium at this time. Pt needing 2 person assist to stand to the FWW and pt complaining of pain on the LLE, hospitalist notified. Pt initially quite confused, however after having him place his hearing aids in able to follow commands better and stay on the conversations more consistently versus joking around. At this time pt will benefit from skilled rehab. Goals Self-Feeding Goal Independent Grooming Goal Independent Dressing Goal Independent Toileting Goal Independent Bathing Goal Independent Toilet Transfer Goal Independent Shower Transfer Goal Independent Days to Meet Goals 20 Frequency of Treatment Frequency Of Treatment Once a Day Treatment Plan OT Treatment Plan ADL Training,Functional Cognition Training,Functional Mobility,Patient/Family Education,Discharge Planning Discharge Recommendations OT Discharge Recommendations SNF Rehab Transportation Needs at Discharge Wheelchair/Cabulance
[2023-11-15 14:00] VITALS: BMI 38.9
[2023-11-15 14:03] VITALS: BMI 38.9
--- NOTE | 2023-11-15 14:47 | CM.DANOTE ---
Addendum entered by SEVEN Cano 11/15/23 15:35: ADD: [facility] monitoring patient's progress, will look into [facility] [place] bed for possible Saturday admit. Original Note: Initial DCP Assessment Note Pt is a 78 yo male, resident of [place], presents after a fall at home, patient poor historian upon arrival and details remain vague. Patient admitted OBS initially for management of rhabdo with hypokalemia and hyponatremia, made INPT today 11/14. PCP: Reza Soni Payer: [facility]/Rosanne hernández Kim Reviewed chart, pt discussed in multidisciplinary rounds this morning. Therapy recommending SNF. Met w/patient to introduce self and role. Patient sitting up in chair, able to track conversation this visit, some mild confusion noted. Kept this visit brief, no family present. Discussed therapy recommendation for SNF and patient reports he has been to [facility] in the past and would rather referrals go to [facility], [facility] and [facility]. LORENZO Graham, kindly agreed to start referrals to SNF choices. Patient can use his [facility] SNF benefit starting November 17. PASRR completed in anticipation of DC to SNF. Plan: Discharge to SNF anticipated, referrals started. CM team will plan to follow clinical course closely. Additional assessment and planning with family present will likely be helpful. SEVEN Diaz Discharge Planning/Care Management CM Discharge Assessment Start: 11/15/23 14:38 Freq: Status: Active Protocol: Document 11/15/23 14:38 [facility] (Rec: 11/15/23 14:46 [facility] [id number]) Discharge Planning Assessment Assigned Maint Mechanic SEVEN Barron DPOA/Assigned Designee Name brother Graay Contact Information [phone] Advance Directives? No History Provided By Patient,Medical Record Prior Living Arrangements House Household Members none Independent with ADL's Patient reports uses cane, PLOF unknown Is patient alert and oriented? Yes: With some confusion this visit Patient/Family Preference [facility] Facility Barriers to Discharge Yes Comment Lives alone, SNF upon discharge is recommended Discharge Plan [facility] Facility Transportation Arrangement Likely cabulance Referrals Initiated [facility] Additional Comment [facility], [facility] and [facility] [place], per patient's request Inpatient Status as of 11/15/23 Comment OBS to INPT 11/14 SNF/HH Preference [facility], [facility], [facility] Has Agency SNF been contacted Yes
[2023-11-15 16:00] VITALS: BP 116/89; PULSE 70; RESP 16; TEMP 36.4; O2SAT 99
[2023-11-15] MEDS: HYDROCODONE/ACET 5/325 TABLET 1 TAB PO (19:35)
[2023-11-15 20:47] VITALS: BP 140/85; PULSE 66; RESP 18; TEMP 36.7; O2SAT 96
[2023-11-15 21:46] VITALS: BP 140/85; PULSE 70
[2023-11-15] MEDS: carvediloL 3.125 MG TABLET 6.25 MG PO (21:46)
[2023-11-16] VITALS: BP 128/72; PULSE 70; RESP 16; TEMP 36.8; O2SAT 94
[2023-11-16 05:46] VITALS: BP 138/78; PULSE 70; RESP 19; TEMP 36.5; O2SAT 96
[2023-11-16] MEDS: HYDROCODONE/ACET 5/325 TABLET 1 TAB PO ×2 (05:46→20:23)
[2023-11-16 07:09] LABS: Add Manual Diff / Slide Review NO; Basophils Absolute Auto 100 /uL (0-100); Basophils Percent Auto 0.7 % (0-2); Eosinophils Absolute Auto 200 /uL (0-450); Eosinophils Percent Auto 3.3 % (2-4); Hematocrit 37.9 % (41-53); Hemoglobin 13.3 g/dL (13.5-17.5); Lymphocytes Absolute Auto 1300 /uL (1100-4500); Lymphocytes Percent Auto 17.8 % (25-40); Mean Corpuscular HGB Conc 35.1 % (30-36); Mean Corpuscular Hemoglobin 31.4 PG (26-34); Mean Corpuscular Volume 89.7 fL (80-100); Monocytes Absolute Auto 1000 /uL (0-900); Monocytes Percent Auto 13.3 % (3-14); Neutrophils Absolute Auto 4700 /uL (1500-7000); Neutrophils Percent Auto 64.9 % (50-75); Platelet Count 133 X10^3/uL (150-400); Red Blood Cell Count 4.23 X10^6/uL (4.5-5.9); Red Cell Distribution Width 13.5 % (11.6-14.8); White Blood Cell Count 7.3 X10^3/uL (4.5-11.0)
--- NOTE | 2023-11-16 07:27 | PM.PN.1 ---
Subjective Subjective Interval history: Doing well, chronic back pain. He denies any dyspnea and did sleep well last night. Exam Vital Signs (past 8 hours): - 11/16/23 00:00 11/16/23 05:46 Temperature 98.3 F 97.7 F Pulse Rate 70 70 Respiratory Rate 16 19 Blood Pressure 128/72 138/78 Pulse Oximetry 94 96 Oxygen Delivery Method Room Air Oxygen Flow Rate 0 Narrative Exam Narrative: NAD, alert and oriented. Fluent speech. Left periorbital hematoma. Lungs are clear, normal rate and effort. Heart is regular, no murmur gallop or rub. Abdomen is soft, non distended. Extremities are free of edema. Objective Labs 11/16/23 06:30 11/16/23 06:30 Labs: Laboratory Results - last 24 hr 11/16/23 06:30 WBC 7.3 RBC 4.23 L Hgb 13.3 L Hct 37.9 L MCV 89.7 MCH 31.4 MCHC 35.1 RDW 13.5 Plt Count 133 L Neut % (Auto) 64.9 Lymph % (Auto) 17.8 L [place] % (Auto) 13.3 Eos % (Auto) 3.3 Baso % (Auto) 0.7 Neut # (Auto) 4700 Lymph # (Auto) 1300 [place] # (Auto) 1000 H Eos # (Auto) 200 Baso # (Auto) 100 PFSH Social History household members: none Smoking Status: Former smoker alcohol intake: current Assessment & Plan Assessment & Plan narrative: 1. Hypokalemia, new and active. 2. Hyponatremia, new and active. 3. Fall, present on admission and active. 4. Traumatic rhabdomyolysis, present on admission and active. CPK 670 today. 5. Acute kidney injury, present on admission and resolved. 6. Left periorbital hematoma, present on admission and active. 7. Aortic stenosis with history of recent TAVR, present on admission and stable 8. Hypertension, present on admission and stable. 9. AICD, present on admission and stable. 10. BPH, present on admission and stable. 11. Profound weakness with gait instability, present on admission and active. PLAN: -continue PT strengthening and assessments. -discharge planning. -replete potassium ABEL: 11/16. PT evaluation again today for discharge planning (HH vs SNF). He has had 2 recent falls and is at high risk for adverse outcomes of future falls if he does not have his weakness assessed and improved. Quality VTE Deep Vein Thrombosis/Pulmonary Embolism Present on Admission: No
[2023-11-16 07:34] LABS: BUN Creatinine Ratio 24.1 (6-22); Blood Urea Nitrogen 20 mg/dL (9-20); Calcium 8.3 mg/dL (8.4-10.2); Carbon Dioxide 25 mmol/L (22-32); Chloride 102 mmol/L (98-107); Creatine Kinase 213 U/L (55-170); Estimated Glomerular Filt Rate > 60 mL/min (>60); Glucose 102 mg/dL (80-110); HEMOLYSIS < 15 (0-50); Potassium 3.3 mmol/L (3.4-5.1); Sodium 131 mmol/L (137-145)
[2023-11-16] MEDS: SODIUM CHLORIDE 0.9% 1,000 ML 100 ML IV (08:18)
[2023-11-16] MEDS: TAMSULOSIN 0.4 MG CAPSULE PO ×2 (09:09→20:23)
[2023-11-16] MEDS: ASPIRIN EC 81 MG TABLET 162 MG PO (09:09)
[2023-11-16] MEDS: POTASSIUM CHLORIDE 20 MEQ TAB 40 MEQ PO ×2 (09:09→16:13)
[2023-11-16 09:10] VITALS: BP 138/76; PULSE 92
[2023-11-16] MEDS: carvediloL 12.5 MG TABLET PO (09:10)
[2023-11-16] MEDS: HEPARIN 5,000 UNIT/ML VIAL 5000 UNIT SUBCUT ×2 (09:10→20:22)
--- NOTE | 2023-11-16 10:35 | PT.IPTN ---
Current Diagnoses Traumatic ischemia of muscle, initial encounter (11/15/23) Physical Therapy Treatment Note M2 PT-IP Current Condition Start: 11/14/23 12:48 Freq: NEEDED Status: Active Protocol: Document 11/15/23 09:30 AB (Rec: 11/15/23 13:10 AB [id number]) Physical Therapy Current Condition Current Condition Evaluation Date 11/15/23 Treatment Diagnosis s/p fall; difficulty in walking Onset Date 11/14/23 M3 PT-IP Subjective Start: 11/14/23 12:48 Freq: NEEDED Status: Active Protocol: Document 11/16/23 11:06 TS (Rec: 11/16/23 11:18 TS [id number]) Subjective Physical Therapy Visit Type Type Treatment Note Visit Start Time 10:35 Visit Stop Time 11:00 Number of RADIOTELEPHONE OPERATOR Visits 1 Physical Therapy Visit Comments Patient Comments Pt found resting in bed, reports pain in LLE and poor strength. He is agreeable to PT. Therapy Pain Assessment Pain When Pain Assessed At Rest Pain Present Pain Present Pain Reported M4 PT-IP Mobility and Gait Start: 11/14/23 12:48 Freq: NEEDED Status: Active Protocol: Document 11/16/23 11:06 TS (Rec: 11/16/23 11:18 TS [id number]) PT-Bed Mobility Assessment Supine to Sit Supine to Sit Maximum Assistance,1 Person Assistance,2 Person Assistance ,Head of Bed Elevated,Bedrails Scooting Scooting to Edge of Bed Moderate Assistance PT-Transfer Assessment Sit to and From Stand Sit to and from Stand Moderate Assistance,2 Person Assistance Equipment Transfer Assistive Device Gait Belt,Front Wheeled Walker Orthotic/Prosthetic Devices or Brace: No Comments Mobility Comments Supine to sit MaxA x2 to upright trunk, pt requires assist with LLE to EOB. Pt sat EOB initially Min-ModA with a posterior lean, progressed to SBA with no rail support. STS with FWW ModA x2, pt standing balance is fair. He ambulated in room ~25'Jonathan x2 with FWW and a step to gait. Pt sat in chair, performed seated knee flex/ext, pt reports weakness in LLE. Pt was left in chair, all needs met. Gait Assessment Gait Gait Assistance Required: Minimum Assistance,2 Person Assist Distance (Feet) 25 Able to Maintain Weight Bearing Status Yes During Gait Assistive Devices Assistive Device Gait Belt,Front Wheeled Walker Orthotic/Prosthetic Devices or Brace: No Gait Deviations General Gait Pattern Antalgic,Ataxic,Decreased Stride Length,Decreased Feet Clearance,Step-to Gait Factors Limiting Gait Function Factors Limiting Gait Function Decreased Activity Tolerance, Decreased Sensation,Decreased Strength,Difficulty Following Directions,Limited Range of Motion,Pain,Poor Balance,Poor Safety Awareness PT-Balance Assessment Sitting Balance and Reactions Static Sitting Balance Ability Fair Dynamic Sitting Balance Ability Fair Standing Balance and Reactions Static Standing Balance Ability Fair Dynamic Standing Balance Ability Fair Device Used FWW M5 PT-IP Objective Assessments Start: 11/14/23 12:48 Freq: NEEDED Status: Active Protocol: Document 11/15/23 09:30 AB (Rec: 11/15/23 13:10 AB [id number]) Orientation Orientation/Cognition Level of Alertness Alert Language Function Ability Hard of Hearing Safety Awareness Decreased Safety Awareness Memory Description Short Term Impaired Gross Range of Motion Lower Extremity ROM Assessment Within Functional Limits Strength Lower Extremity Strength Assessment Bilaterally Impaired Comments Strength Comments RLE: 4-/5 LLE 3+/5 Sensation Assessment Sensation Sensation Description Numbness Comments Sensation Comments chronic B feet numbness per pt Muscle Tone Muscle Tone WNL Yes M6 PT-IP Treatment Start: 11/14/23 12:48 Freq: NEEDED Status: Active Protocol: Document 11/16/23 11:06 TS (Rec: 11/16/23 11:18 TS [id number]) Physical Therapy Treatment Education Education Provided Safety M7 PT-IP Assessment and Plan Start: 11/14/23 12:48 Freq: NEEDED Status: Active Protocol: Document 11/16/23 11:06 TS (Rec: 11/16/23 11:18 TS [id number]) PT Summary Assessment and Plan Potential Rehabilitation Potential Fair Summary Impairments Pain,ROM,Strength,Balance, Coordination,Sensation,Tone, Cognition,Bed Mobility, Transfers,Gait,Activity Tolerance Progress Towards Goals Slow Progress due to Pain,Slow Progress due to Activity Tolerance Assessment Summary Ben made some progress with his mobility but continues to be limited by L hip pain and activity tolerance. He continues to require MaxA for supine to sit 1-2PA. He required decreased assist STS with ModA x2. He progressed his gait to ~25' with use of FWW and a stpe to gait. Pt has some slight buckling of LLE with gait. PT continues to recommend SNF. Goals Bed Mobility Goal Minimal Assistance Transfer Goal Minimal Assistance,Front Wheeled Walker Gait Goal Minimal Assistance,Front Wheel Walker Gait Distance 100 Other Goals improve bed mobility, transfers, ambulation using FWW ~ 200 ft SBA up/down 3 steps using SPC SBA up/down 14 steps R rail descending + SPC SBA Days to Meet Goals 10 Frequency of Treatment Frequency Of Treatment Once a Day Treatment Plan Physical Therapy Treatment Plan Bed Mobility Training,Transfer Training,Gait Training, Therapeutic Exercise,Balance Retraining,Discharge Planning, Hot or Cold Pack,Neuromuscular Re-ed,Coordination Retraining ,Manual Therapy Precautions Other Precautions falls Recommendations To Nursing Amount of Assist Needed 2 Person Assist Discharge Recommendations PT Discharge Recommendations SNF Rehab Equipment Needed for Home Before FWW Discharge
--- NOTE | 2023-11-16 12:31 | CM.DPC ---
DCP Cont: Spoke to October at [facility], confirmed that they have a lg bed, and should be able to accept on Saturday. [facility] is currenty full. P: DCP to continue to follow. Plan is [facility] Saturday. Zeinab Baker RN/Steward/Stewardess Dining Room
[2023-11-16 13:00] VITALS: BP 137/81; PULSE 70; RESP 16; TEMP 36.3; O2SAT 98
[2023-11-16 20:24] VITALS: BP 152/85; PULSE 70
[2023-11-16] MEDS: carvediloL 3.125 MG TABLET 6.25 MG PO (20:24)
[2023-11-16 20:29] VITALS: BP 152/85; PULSE 70; RESP 20; TEMP 36.3; O2SAT 95
[2023-11-17] VITALS (7 sets, daily range): BP systolic 126–151; BP diastolic 73–92; PULSE 70–71; RESP 16–20; TEMP 36.3–37; O2SAT 96–98
[2023-11-17] MEDS: SODIUM CHLORIDE 0.9% 1,000 ML 100 ML IV ×3 (00:58→22:57)
--- NOTE | 2023-11-17 07:28 | P.PN_ITS ---
Subjective Subjective Interval history: He was admitted with a fall without serious injuries. He has profound weakness and gait instability. This has been subacute and progressive. He is [facility] being [facility]. He lives alone in [place] it was multiple siblings in the [place] area. S: Still weak but improving. He is agreeable to penitentiary facility rehabilitation. He denies chest pain, or shortness a breath. He was a left periorbital hematoma. Exam Vital Signs (past 8 hours): - 11/17/23 00:30 11/17/23 04:00 Temperature 98.6 F 97.7 F Pulse Rate 70 71 Respiratory Rate 20 20 Blood Pressure 133/78 131/80 Pulse Oximetry 96 97 Oxygen Flow Rate 0 0 Oxygen Delivery Method Room Air Oxygen Flow Rate 0 Narrative Exam Narrative: NAD, alert and oriented. Fluent speech. Left periorbital hematoma. Lungs are clear, normal rate and effort. Heart is regular, no murmur gallop or rub. Abdomen is soft, non distended. Extremities are free of edema. Objective Labs 11/17/23 09:45 11/17/23 09:45 Labs: Laboratory Results - last 24 hr 11/16/23 06:30 Sodium 131 L Potassium 3.3 L Chloride 102 Carbon Dioxide 25 BUN 20 Creatinine 0.83 Estimated GFR > 60 BUN/Creatinine Ratio 24.1 H Glucose 102 Calcium 8.3 L Total Creatine Kinase 213 H D [facility] Social History household members: none Smoking Status: Former smoker alcohol intake: current Assessment & Plan Assessment & Plan narrative: 1. Hypokalemia, new and improved. 2. Hyponatremia, new and improved. 3. Fall, present on admission and active. 4. Traumatic rhabdomyolysis, present on admission and improved. 5. Acute kidney injury, present on admission and resolved. 6. Left periorbital hematoma, present on admission and active. 7. Aortic stenosis with history of recent TAVR, present on admission and stable 8. Hypertension, present on admission and stable. 9. AICD, present on admission and stable. 10. BPH, present on admission and stable. 11. Profound weakness with gait instability, present on admission and active. PLAN: -continue PT strengthening and assessments. Did poorly on November 15 with recommendations for penitentiary facility for rehabilitation. -discharge planning. [facility] referral sent. -monitor potassium ABEL: 11/17. Quality VTE Deep Vein Thrombosis/Pulmonary Embolism Present on Admission: No
[2023-11-17 09:53] LABS: Add Manual Diff / Slide Review NO; Basophils Absolute Auto 100 /uL (0-100); Eosinophils Absolute Auto 300 /uL (0-450); Eosinophils Percent Auto 5.4 % (2-4); Hematocrit 36.2 % (41-53); Hemoglobin 12.5 g/dL (13.5-17.5); Lymphocytes Absolute Auto 1000 /uL (1100-4500); Lymphocytes Percent Auto 19.7 % (25-40); Mean Corpuscular HGB Conc 34.4 % (30-36); Mean Corpuscular Hemoglobin 31.3 PG (26-34); Monocytes Absolute Auto 700 /uL (0-900); Neutrophils Absolute Auto 3000 /uL (1500-7000); Neutrophils Percent Auto 59.9 % (50-75); Platelet Count 137 X10^3/uL (150-400); Red Blood Cell Count 3.98 X10^6/uL (4.5-5.9); Red Cell Distribution Width 13.6 % (11.6-14.8); White Blood Cell Count 5.1 X10^3/uL (4.5-11.0)
[2023-11-17 10:03] LABS: BUN Creatinine Ratio 23.3 (6-22); Blood Urea Nitrogen 20 mg/dL (9-20); Calcium 8.3 mg/dL (8.4-10.2); Carbon Dioxide 28 mmol/L (22-32); Chloride 106 mmol/L (98-107); Estimated Glomerular Filt Rate > 60 mL/min (>60); Glucose 109 mg/dL (80-110); HEMOLYSIS < 15 (0-50); Potassium 3.8 mmol/L (3.4-5.1); Sodium 134 mmol/L (137-145)
[2023-11-17 10:11] LABS: Creatine Kinase 130 U/L (55-170)
[2023-11-17] MEDS: ASPIRIN EC 81 MG TABLET 162 MG PO (10:26)
[2023-11-17] MEDS: HEPARIN 5,000 UNIT/ML VIAL 5000 UNIT SUBCUT ×2 (10:26→20:47)
[2023-11-17] MEDS: TAMSULOSIN 0.4 MG CAPSULE PO ×2 (10:26→20:48)
[2023-11-17] MEDS: carvediloL 12.5 MG TABLET PO (10:26)
[2023-11-17] MEDS: POTASSIUM CHLORIDE 20 MEQ TAB 40 MEQ PO (10:26)
--- NOTE | 2023-11-17 11:00 | PT.IPTN ---
Current Diagnoses Traumatic ischemia of muscle, initial encounter (11/15/23) Physical Therapy Treatment Note M2 PT-IP Current Condition Start: 11/14/23 12:48 Freq: NEEDED Status: Active Protocol: Document 11/15/23 09:30 AB (Rec: 11/15/23 13:10 AB [id number]) Physical Therapy Current Condition Current Condition Evaluation Date 11/15/23 Treatment Diagnosis s/p fall; difficulty in walking Onset Date 11/14/23 M3 PT-IP Subjective Start: 11/14/23 12:48 Freq: NEEDED Status: Active Protocol: Document 11/17/23 10:35 KS (Rec: 11/17/23 12:04 KS [id number]) Subjective Physical Therapy Visit Type Type Treatment Note Visit Start Time 10:35 Visit Stop Time 11:00 Number of SPINNING LATHE OPERATOR Visits 2 Physical Therapy Visit Comments Patient Comments Pt found resting in bed, reports pain in LLE and poor strength. He is agreeable to PT. M4 PT-IP Mobility and Gait Start: 11/14/23 12:48 Freq: NEEDED Status: Active Protocol: Document 11/17/23 10:35 KS (Rec: 11/17/23 12:04 KS [id number]) PT-Bed Mobility Assessment Supine to Sit Supine to Sit Maximum Assistance,1 Person Assistance,Head of Bed Elevated,Bedrails Scooting Scooting to Edge of Bed Contact Guard Assistance PT-Transfer Assessment Sit to and From Stand Sit to and from Stand Minimal Assistance,1 Person Assistance,Use of Upper Extremities Equipment Transfer Assistive Device Gait Belt,Front Wheeled Walker Orthotic/Prosthetic Devices or Brace: No Transfers Transfer Destination Chair Transfer Technique ambulated Transfer Ability Level of Assist Minimal Assistance,1 Person Assistance,Use of Upper Extremities Comments Mobility Comments Pt in bed upon arrival, required Mod A w/ HOB raised for sup<>sit, CGA for scooting EOB. Pt able to sit<>stand w/ FWW just Min A today and ambulated to chair on the other side of the room ~25 ft CGA. Pt reported fagitue following ambulation and requested to sit in chair. Pt left in chair w/ all needs in reach. Gait Assessment Gait Gait Assistance Required: Minimum Assistance,Moderate Assistance,1 Person Assist Distance (Feet) 25 Able to Maintain Weight Bearing Status Yes During Gait Assistive Devices Assistive Device Gait Belt,Front Wheeled Walker Orthotic/Prosthetic Devices or Brace: No Gait Deviations General Gait Pattern Antalgic,Ataxic,Decreased Stride Length,Decreased Feet Clearance,Step-to Gait Factors Limiting Gait Function Factors Limiting Gait Function Decreased Activity Tolerance, Decreased Sensation,Decreased Strength,Difficulty Following Directions,Limited Range of Motion,Pain,Poor Balance,Poor Safety Awareness PT-Balance Assessment Sitting Balance and Reactions Static Sitting Balance Ability Good Dynamic Sitting Balance Ability Good Standing Balance and Reactions Static Standing Balance Ability Fair Dynamic Standing Balance Ability Fair Device Used FWW M5 PT-IP Objective Assessments Start: 11/14/23 12:48 Freq: NEEDED Status: Active Protocol: Document 11/15/23 09:30 AB (Rec: 11/15/23 13:10 AB [id number]) Orientation Orientation/Cognition Level of Alertness Alert Language Function Ability Hard of Hearing Safety Awareness Decreased Safety Awareness Memory Description Short Term Impaired Gross Range of Motion Lower Extremity ROM Assessment Within Functional Limits Strength Lower Extremity Strength Assessment Bilaterally Impaired Comments Strength Comments RLE: 4-/5 LLE 3+/5 Sensation Assessment Sensation Sensation Description Numbness Comments Sensation Comments chronic B feet numbness per pt Muscle Tone Muscle Tone WNL Yes M6 PT-IP Treatment Start: 11/14/23 12:48 Freq: NEEDED Status: Active Protocol: Document 11/17/23 12:04 KS (Rec: 11/17/23 12:04 KS [id number]) Physical Therapy Treatment Education Education Provided Safety M7 PT-IP Assessment and Plan Start: 11/14/23 12:48 Freq: NEEDED Status: Active Protocol: Document 11/17/23 10:35 KS (Rec: 11/17/23 12:04 KS [id number]) PT Summary Assessment and Plan Summary Impairments Pain,ROM,Strength,Balance, Coordination,Sensation,Tone, Cognition,Bed Mobility, Transfers,Gait,Activity Tolerance Progress Towards Goals Slow Progress due to Pain,Slow Progress due to Activity Tolerance Assessment Summary Pt required less assistance overall today (min to Mod A x1 ),but still demonstrates difficulty performing bed mobltiy w/o increased assistance and has low tolerance for actvity. Pt will benefit from SNF to improve strength and functional mobility independence. Goals Bed Mobility Goal Minimal Assistance Transfer Goal Minimal Assistance,Front Wheeled Walker Gait Goal Minimal Assistance,Front Wheel Walker Gait Distance 100 Other Goals improve bed mobility, transfers, ambulation using FWW ~ 200 ft SBA up/down 3 steps using SPC SBA up/down 14 steps R rail descending + SPC SBA Days to Meet Goals 10 Frequency of Treatment Frequency Of Treatment Once a Day Treatment Plan Physical Therapy Treatment Plan Bed Mobility Training,Transfer Training,Gait Training, Therapeutic Exercise,Balance Retraining,Discharge Planning, Hot or Cold Pack,Neuromuscular Re-ed,Coordination Retraining ,Manual Therapy Precautions Other Precautions falls Recommendations To Nursing Amount of Assist Needed 1 Person Assist Discharge Recommendations PT Discharge Recommendations SNF Rehab Equipment Needed for Home Before FWW Discharge
--- NOTE | 2023-11-17 15:19 | CM.DPC ---
DCP Cont. Reviewed EMR and team rounds for status updates. [facility] can accept on Saturday, will need to let Hospitalist know to NOT document that he is has resolved the hypokalemia, but rather state his is improving otherwise he will no longer qualify for SNF, per insurance. Confirm transport time on Saturday.
--- NOTE | 2023-11-17 15:21 | CM.DPC ---
DCP Cont. Reviewed EMR and team rounds for status updates. Per Hospitalist, anticipate d/c home on Saturday 11/18.
--- NOTE | 2023-11-17 16:24 | PC.NURSE ---
Patient was up to the chair with physical therapy today. He is a 2 person assist with walker and gaitbelt. He is tolerating his ivf and just went back to bed a bit ago. Denies pain today, will continue to monitor.
[2023-11-17] MEDS: carvediloL 3.125 MG TABLET 6.25 MG PO (20:47)
[2023-11-17] MEDS: HYDROCODONE/ACET 5/325 TABLET 1 TAB PO (20:48)
--- NOTE | 2023-11-17 23:32 | PC.NURSE ---
Patient is alert and oriented. JACKSON even with bilateral hearing aids in. Breath sounds CTA with RA sat of 98%. HRR w/telemetry reading of v-paced; BP elevated at 151/92. Denied nausea. BT hypoactive but did have BM at start of shift. Is voiding per urinal and denied any dysuria; urine is clear, dark severino. Is assisted to reposition on request. Is out of bed with walker and 2 assists; has difficulty getting to standing position but then seems to be steady on feet. Did complain of left shoulder pain and was medicated with Vicodin. Bilateral calf SCD's applied at time of assessment. Fall risk score is high and bed alarm is activated. Is wearing home CPAP for sleep.
[2023-11-18 00:13] VITALS: BP 163/99; PULSE 70; RESP 16; TEMP 37.3; O2SAT 98
[2023-11-18 04:06] VITALS: BP 144/94; PULSE 68; RESP 16; TEMP 36.2; O2SAT 96
[2023-11-18 08:00] VITALS: BP 132/93; PULSE 70; RESP 18; TEMP 35.9; O2SAT 97
--- NOTE | 2023-11-18 09:24 | CM.SWNOTE ---
DCP Continued Reviewed EMR and team rounds for pt?s medical status. DCP spoke with Germán and noted pt can still be accepted today if medically stable. SV requesting that documentation to state that Rhabdomyolysis improving or not resolved to meet medical necessity. DCP notified MANAGER VALIDATION, Pt RN and Provider. Plan: Anticipating pt to dc to [facility] today, 11/17 at 1330 via wheelchair transport from facility. CM Team will continue to follow for coordination of discharge plans. TEA Rangel
[2023-11-18] MEDS: POTASSIUM CHLORIDE 20 MEQ TAB 40 MEQ PO (09:49)
[2023-11-18] MEDS: TAMSULOSIN 0.4 MG CAPSULE PO (09:49)
[2023-11-18] MEDS: ASPIRIN EC 81 MG TABLET 162 MG PO (09:49)
[2023-11-18] MEDS: HEPARIN 5,000 UNIT/ML VIAL 5000 UNIT SUBCUT (09:50)
[2023-11-18] MEDS: carvediloL 12.5 MG TABLET PO (09:50)
--- NOTE | 2023-11-18 10:41 | PC.NURSE ---
Patient is going to SNF today, he is getting cleaned up and will be going at 1330.
--- NOTE | 2023-11-18 10:45 | OT.IP.TRT ---
Current Diagnoses Traumatic ischemia of muscle, initial encounter (11/15/23) Occupational Therapy Treatment Note M2 OT-IP Current Condition Start: 11/15/23 12:31 Freq: Status: Active Protocol: Document 11/15/23 12:32 [facility] (Rec: 11/15/23 12:55 [facility] [id number]) Occupational Therapy Current Condition Current Condition Evaluation Date 11/15/23 Treatment Diagnosis Fall, Rhabdo, hypoatremia Diagnosis Onset Date 11/14/23 M3 OT- IP Subjective and Pain Start: 11/15/23 12:31 Freq: Status: Active Protocol: Document 11/18/23 11:34 CGR (Rec: 11/18/23 11:41 CGR [id number]) OT- Subjective Occupational Therapy Visit Type Type Treatment Note Visit Start Time 10:07 Visit Stop Time 10:45 Notes Pt is planned for dicharge to SNF today. OT Pain Assessment Pain When Pain Assessed At Rest Pain Present Pain Present Denied Pain M4 OT- IP ADL's Start: 11/15/23 12:31 Freq: Status: Active Protocol: Document 11/18/23 11:34 CGR (Rec: 11/18/23 11:41 CGR [id number]) OT [id number] Comments OT Self-Feeding Comments not meal time OT ADL-Grooming General Evaluation Grooming Ability Standby Assistance Areas Needing Assistance Face Washing Comments OT Grooming Comments seated in chair at sink OT ADL-Oral Care General Eval Oral Care Ability Standby Assistance Areas of Assistance Retrieving/Set-Up of Items Comments Oral Care Comments seated in chair at sink OT ADL-Dressing General Eval Upper Body Dressing Ability Moderate Assistance Comments OT Dressing Comments pt donned clean gown OT ADL-Toileting Comments OT Toileting Comments not performed OT ADL-Bathing General Evaluation Bathing Ability Minimal Assistance Areas Needing Assistance Wash/Dry Back Comments OT Bathing Comments seated in chair at sink M5 OT- IP IADL's Start: 11/15/23 12:31 Freq: Status: Active Protocol: Document 11/15/23 12:32 [facility] (Rec: 11/15/23 12:55 [facility] [id number]) OT-Instrumental Activities of Daily Living Home Safety Awareness Ability to Problem Solve Emergency Able to Problem Solve Situations Home Safety Comments Pt aware that he will need assist and not able to care for himself at this time. Pt able to answer all home safety situations with good accuracy . Medication Management Medication Management Comments Pt states does his own. Money Management Money Management Comments Pt states does his own. Meal Preparation Meal Preparation Comments Pt will benefit from assist. Bending Roll Hand Bending Roll Hand Comments Pt will benefit from assist. Driving Driving Concerns Identified Regarding Safety M6 OT- IP Functional Cognition Start: 11/15/23 12:31 Freq: Status: Active Protocol: Document 11/18/23 11:34 CGR (Rec: 11/18/23 11:41 CGR [id number]) Cognitive Factors Limiting Selfcare Function Cognitive Ability Level of Alertness Alert,Confusional State Patient Orientation Name,Place Attention Span Ability Capable of Focused Attention, Capable of Sustained Attention Ability to Follow Commands Able to Follow One Step Commands with Increased Time, Able to Follow One Step Commands with Repetition Cognitive Comments Cognitive Assessment Comments pt may benefit from formal cog assessment. OT- Vision and Hearing OT- Hearing Assessment OT- Hearing Assessment Hearing Impaired M7 OT- IP Mobility and Balance Start: 11/15/23 12:31 Freq: Status: Active Protocol: Document 11/18/23 11:34 CGR (Rec: 11/18/23 11:41 CGR [id number]) OT- Bed Mobility Assessment Supine to Sit Supine to Sit Assist Standby Assistance,Head of Bed Elevated,Bedrails Scooting Scooting to Edge of Bed Standby Assistance,Head of Bed Elevated,Bedrails OT-Transfer Assessment Sit to and From Stand Sit to and from Stand Minimal Assistance Transfers Transfer Ability Minimal Assistance Technique Transfer Destination Bed,Chair Transfer Technique Stand Step Pivot Devices Transfer Assistive Devices Gait Belt,Front Wheeled Walker Comments Mobility Comments Pt stood from high bed with min a and then again from chair with min a and more difficulty. OT- Gait Assessment Comments Gait Ability Comments not performed OT- Balance Assessment Sitting Balance and Reactions Static Sitting Balance Ability Good Dynamic Sitting Balance Ability Good M8 OT- IP Objective Assessments Start: 11/15/23 12:31 Freq: Status: Active Protocol: Document 11/15/23 12:32 CCC (Rec: 11/15/23 12:55 CCC [id number]) OT Gross Range of Motion Upper Extremity Range of Motion Assessment Within Functional Limits OT Strength Upper Extremity Strength Assessment Within Functional Limits OT- Coordination Assessment Upper Extremity Finger to Nose Test Within Functional Limits OT Sensation Assessment Comments Summary Comments Intact for light touch. M9 OT- IP Assessment and Plan Start: 11/15/23 12:31 Freq: Status: Active Protocol: Document 11/18/23 11:34 CGR (Rec: 11/18/23 11:41 CGR [id number]) OT Summary Assessment and Plan Potential Rehabilitation Potential Good Analytic Complexity at Evaluation Moderate Summary OT Impairments Pain,Strength,Balance, Functional Cognition, Functional Mobility,Grooming, Dressing,Toileting,Bathing, Toilet Transfers,Shower Transfers,Activity Tolerance Progress Towards Goals Slow Progress due to Pain,Slow Progress due to Medical Issues,Slow Progress due to Activity Tolerance,Slow Progress due to Cognition Assessment Summary Pt is progressing with therapy and participated in bathing at sink per his choice. Pt still needing min a for sit to stand and very limited mobility distance. Pt with increased breathing rate with all activity. Pt with c/o itchiness to his back which was cleaned and lotioned for increased comfort. Pt will benefit from continued therapy services. Recommend SNF. Goals Self-Feeding Goal Independent Grooming Goal Independent Dressing Goal Independent Toileting Goal Independent Bathing Goal Independent Toilet Transfer Goal Independent Shower Transfer Goal Independent Days to Meet Goals 20 Frequency of Treatment Frequency Of Treatment Once a Day Treatment Plan OT Treatment Plan ADL Training,Functional Cognition Training,Functional Mobility,Patient/Family Education,Discharge Planning Discharge Recommendations OT Discharge Recommendations SNF Rehab Transportation Needs at Discharge Wheelchair/Cabulance
[2023-11-18 12:00] VITALS: BP 143/95; PULSE 70; RESP 30; TEMP 36.2; O2SAT 97
--- NOTE | 2023-11-18 12:30 | PM.DS.1 ---
History of Present Illness History of Present Illness Date Patient Seen: 11/18/23 Time Patient Seen: 12:30 Chief complaint: Fall, on thinners, found down Narrative: The patient is a 78-year-old male with history of aortic stenosis and TAVR within the last year in [place]. The patient presented to the ED by EMS for a fall. He tells me that he was looking for something last night, using his cane, and lost balance and fell. He was stuck on the floor overnight, for about 10 hours. He arrived to the ED with some bruising on his torso and a left periorbital hematoma. A CT of the head, C-spine, chest and abdomen was unremarkable. He denies any focal pain over his arms or legs. He did have a mildly elevated CPK and creatinine. He was started on IV fluids in the emergency department. He did not have evidence of confusion or acute injury other than those mentioned. He denies chest pain, palpitations, syncope, or seizures. Discharge Providers Provider Date of admission: 11/15/23 13:20 Discharge Date: 11/18/23 Primary care physician: Reza Soni MD Consults: 11/14/23 12:30 Consult to Occupational Therapy Evaluate & Treat Comment: Physician Instructions: Evaluate and treat Consult to Physical Therapy Evaluate & Treat Comment: Physician Instructions: Evaluate and Treat Discharge provider: Quinn Salgado DO Summary Hospital Course Discharge Diagnosis: 1. Hypokalemia, new and improved. 2. Hyponatremia, new and improved. 3. Fall, present on admission and active. 4. Acute rhabdomyolysis, present on admission and improved. 5. Acute kidney injury, present on admission and resolved. 6. Left periorbital hematoma, present on admission and active. 7. Aortic stenosis with history of recent TAVR, present on admission and stable 8. Hypertension, present on admission and stable. 9. AICD, present on admission and stable. 10. BPH, present on admission and stable. 11. Profound weakness with gait instability, present on admission and active. Hospital Course: This is a 78 year old male with PMH of Aortic stenosis, HTN, BPH who presented after a fall with persistent weakness. Initial labs were notable for rhabdomyolysis and DUY which improved initially with IV fluids. Presenting hyponatremia, hypokalemia and elevated CK levels all improved to normal but he continued to have persistent weakness. After therapy evaluations he was recommended for SNF for ongoing therapy due to the above acute medical issues. No changes were made on discharge to his home medications. Consider cessation of HCTZ in the future should he again develop low sodium levels though this episode is presumed secondary to dehydration and rhabdomyolysis. Time Spent with Patient Time spent: Greater than 30 minutes Exam Vital Signs (past 8 hours): - 11/18/23 08:00 Temperature 96.7 F L Pulse Rate 70 Respiratory Rate 18 Blood Pressure 132/93 H Pulse Oximetry 97 Oxygen Delivery Method Room Air Oxygen Flow Rate 0 Narrative Exam Narrative: NAD, alert and oriented. Fluent speech. Left periorbital hematoma. Lungs are clear, normal rate and effort. Heart is regular, no murmur gallop or rub. Abdomen is soft, non distended. Extremities are free of edema. Objective Labs 11/17/23 09:45 11/17/23 09:45 [facility] Social History household members: none Smoking Status: Former smoker alcohol intake: current Discharge Plan Discharge Plan Patient Disposition: SNF Provider Discharge Comment: You were admitted to the hospital with rhabdomyolysis. Discharge orders & Medications Prescriptions: New carvedilol 12.5 mg Tablet 12.5 mg PO DAILY Qty: 30 0RF carvedilol 3.125 mg Tablet 6.25 mg PO BEDTIME Qty: 60 0RF mexiletine 200 mg Capsule 400 mg PO DAILY Qty: 30 0RF mexiletine 200 mg Capsule 200 mg PO BEDTIME Qty: 30 0RF acetaminophen 325 mg Tablet 650 mg PO Q6H PRN (Reason: Fever/Mild Pain (1-3)) Qty: 30 0RF hydrocodone-acetaminophen 5-325 mg Tablet 1 tab PO Q4H PRN (Reason: Pain, Moderate (4-6)) 7 Days Qty: 15 0RF Continued atorvastatin 40 mg tablet 40 mg PO QPM tamsulosin 0.4 mg capsule 0.4 mg PO BID hydrochlorothiazide 50 mg tablet 50 mg PO QAM aspirin 162 mg PO DAILY Discontinued carvedilol 6.25 mg tablet See Rx Instructions .ROUTE .COMPLEX Rx Instructions: 2 tablets in am, 1 in pm mexiletine 200 mg capsule See Rx Instructions .ROUTE .COMPLEX Rx Instructions: 2 in AM, 1 at bedtime Follow up/Referrals: Reza Soni MD [Primary Care Provider] - Discharge Health Status Precautions: [place] Diet/Activity/Treatments Diet: Diet as Tolerated and Regular Liquid consistency: Normal/Thin Food texture: Regular Activity: No restrictions Special Rehabilitation Services Reason for rehabilitation: Recovery r/t decondition Rehab type: Physical therapy and Occupational therapy Visit Report/Discharge Packet Stand Alone Forms: Patient Portal/API Discharge Data Primary Care Provider: Reza Soni Quality VTE Deep Vein Thrombosis/Pulmonary Embolism Present on Admission: No
--- NOTE | 2023-11-18 13:54 | PC.NURSE ---
Patient discharged to SNF and report called to [facility].
== END 2023-11-18 13:53 | DRG 565 ==
LOC: ED 12:00 → AC 12:02
PROVIDERS: Admitting Provider Hospitalist; Emergency Provider Emergency Medicine; PCP Family Medicine; Referring Provider Emergency Medicine; Visit Provider Hospitalist
DX: T79.6XXA Traumatic ischemia of muscle, initial encounter (principal); E87.1 Hypo-osmolality and hyponatremia; N17.9 Acute kidney failure, unspecified; J84.9 Interstitial pulmonary disease, unspecified; I35.0 Nonrheumatic aortic (valve) stenosis; I10 Essential (primary) hypertension; N40.0 Benign prostatic hyperplasia without lower urinary tract symptoms; G89.29 Other chronic pain; M54.9 Dorsalgia, unspecified; E87.6 Hypokalemia; R26.89 Other abnormalities of gait and mobility; E86.0 Dehydration; R53.1 Weakness; S00.12XA Contusion of left eyelid and periocular area, initial encounter; W18.30XA Fall on same level, unspecified, initial encounter; Z87.891 Personal history of nicotine dependence; Z95.810 Presence of automatic (implantable) cardiac defibrillator; Z95.2 Presence of prosthetic heart valve
CPT/HCPCS: 36415; 70450; 70486; 71260; 72125; 74177; 80048; 80053; 81003; 81015; 82550; 83690; 84484; 85025; 85610; 85730; 93005; 97116; 97162; 97166; 97530; 97535; 99285; G0378; J1644; J7050; Q9967